=== PATIENT | female | born 1950 | race Caucasian/White ===

== ENCOUNTER 2023-08-04 06:46 | Day surgery (SDC) | payer MEDICARE, SELFPAY ==
--- NOTE | 2023-08-04 15:57 | WATCHMAN ---
Documented by User: SAMANTA Saez 09/19/23 09:03
Watchman
Wathcman Procedure
Referred by:: Monica
Date of Referral:: 08/04/23
[id number] Score
Age in Years (65=0, 65-74=1, >/=75=2): 65-74
Sex (Female=+1): Female
Congestive Heart Failure History (Yes=+1): Yes
Hypertension History (Yes=+1): Yes
Stroke/TIA/Thromboembolism History (Yes=+2): No
Vascular Disease History (Yes=+1): No
Diabetes Mellitus (Yes=+1): No
Score: 4
Anticoagulation Recommendations: Recommend anticoagulation (as validated in nonvalvular fib)
HASBLED Score
Hypertenstion (uncontrolled >160mmHG systolic): No
Renal disease (dialysis, transplant, Cr >2.26mg/dL or >200umol/L): No
Liver disease (cirrhosis or bilirubin >2x normal w/ AST/ALT/AP >3x normal: No
Stroke history: No
Prior major bleeding or predisposition to bleeding: No
Labile INR(unsable/high INRs,time in therapeutic range <60%): No
Age >65: Yes
Medication usage predisposing to bleeding(ASA, NSAIDS): No
Alcohol use (>/= 8 drinks/week): No
Score: 1
Risk: Anticoagulation should be considered: Patient has a relatively low risk for major bleeding (1/100 patient-years)
Transesophageal Echocardiogram
0 degrees:: 0.98cm
45 degrees:: 1.03cm
90 degrees:: 0.92cm
135 degrees:: 0.94cm
Electrocardiogram
Interpretation: abnormal
Heart Rate: 63
Rhythm: sinus
Interval: first degree heart block
Physician Visits
Pelt Dropper:: Monica
Date of Visit:: 07/14/23
Primary Boatswain'S Mate:: Denzel
Date of Visit:: 08/04/22
PCP:: Pro
Oral Anticoagulation
Post procedure anticoagulation plan:: Will continue Eliquis 5mg BID + ASA 81mg for for 6 weeks and if KATHERINE at that time shows no leak may transition to ASA/Plavix for a total of 6 months then ASA only per Dr. Anderson.
Plan
Plan:: 07/14/2023: Office consult with Dr. Anderson for watchman evaluation.
08/04/2023: KATHERINE performed by Dr. Mahoney to assess left atrial appendage.
08/08/2023: Reviewed patient with the heart team in the SDM meeting. Reviewed KATHERINE and the team agrees an attempt with a 20 mm device. Will confirm with intraop imaging. Will call to schedule.
08/08/2023: Called patient and updated on heart team discussion. Patient would like to proceed with watchman procedure. Allowed for and answered questions. Offered dates in August for procedure but patient unable to do. Scheduled for 09/19/2023. She
is aware she will have to come in for pre-admission testing. Verified she can tolerate aspirin and she does not have an allergy.
09/19/2023: Patient reviewed by the Heart Team at pre-procedure meeting. Will confirm sizing with KATHERINE prior to placement but anticipating a 20mm device. Will continue Eliquis 5mg BID + ASA 81mg for for 6 weeks and if KATHERINE at that time shows no leak
may transition to ASA/Plavix for a total of 6 months then ASA only per Dr. Anderson.

Documented by User: SAMANTA Dash 08/08/23 07:25
Watchman
[id number] Score
Score: 4
Anticoagulation Recommendations: Recommend anticoagulation (as validated in nonvalvular fib)
HASBLED Score
Score: 1
Risk: Anticoagulation should be considered: Patient has a relatively low risk for major bleeding (1/100 patient-years)
Plan
Plan:: 07/14/2023: Office consult with Dr. Anderson for watchman evaluation.
08/04/2023: KATHERINE performed by Dr. Mahoney to assess left atrial appendage.
08/08/2023: Reviewed patient with the heart team in the SDM meeting. Reviewed KATHERINE and the team agrees an attempt with a 20 mm device. Will confirm with intraop imaging. Will call to schedule.
== END 2023-08-04 08:54 | disposition home or self-care (01) ==
LOC: CATH 06:46
PROVIDERS: ATTENDING PHYSICIAN Internal Medicine Cardiovascular Disease; FAMILY PHYSICIAN Family Medicine
DX: I08.3 Combined rheumatic disorders of mitral, aortic and tricuspid valves (principal); I48.0 Paroxysmal atrial fibrillation; I13.0 Hypertensive heart and chronic kidney disease with heart failure and stage 1 through stage 4 chronic kidney disease, or unspecified chronic kidney disease; I50.32 Chronic diastolic (congestive) heart failure; N18.32 Chronic kidney disease, stage 3b; I25.10 Atherosclerotic heart disease of native coronary artery without angina pectoris; K21.9 Gastro-esophageal reflux disease without esophagitis; G47.33 Obstructive sleep apnea (adult) (pediatric); E66.9 Obesity, unspecified; Z68.41 Body mass index [BMI] 40.0-44.9, adult; Z87.891 Personal history of nicotine dependence; Z85.3 Personal history of malignant neoplasm of breast; Z79.01 Long term (current) use of anticoagulants
CPT/HCPCS: 93312; 93320; 93325

== ENCOUNTER 2023-09-19 05:54 | Inpatient (IN) | payer MEDICARE, SELFPAY ==
[2023-09-15 09:19] VITALS: BMI 44.3
[2023-09-19] VITALS (13 sets, daily range): BP systolic 83–119; BP diastolic 38–70
[2023-09-19] MEDS: NSS 500 IV (06:45)
--- NOTE | 2023-09-19 07:16 | PTCARENOTE ---
PT's SBP initially low 100's now 80's and 90's. NSS bolus of 250 given at this time per Dr Anderson .Will cont to assess.
[2023-09-19] MEDS: NSS 250 IV (07:19)
[2023-09-19 08:45] LABS: ACT-LR - POC 236 Seconds (116-155)
--- NOTE | 2023-09-19 09:22 | WATCHMAN.MD ---
Watchman Implant
-
ELECTROPHYSIOLOGY/INTERVENTIONAL PROCEDURE REPORT
Date of Procedure: September 19, 2023
Referring: Deana Mahoney
Assisting Physician: Андрей Cordova
PROCEDURES:
1. Left atrial appendage occlusion device using 24 mm WATCHMAN FLX device
2. Intracardiac echocardiography
3. Ultrasound-guided right common femoral venous access
INDICATION: Paroxysmal atrial fibrillation with high CHADS2 Vascor warranting full anticoagulation in the setting of high has bled score and frequent falls.
ACCESS: Right common femoral vein, 16Fr sheath and 9Fr. sheaths, under US guidance using micropunture kit.
HEMODYNAMICS : (mmHg)
RA Pressure : 14
LA Pressure: 19
PROCEDURE REPORT:
After informed consent and patient safety 'Timeout' the patient was intubated and sedated by the anesthesiology service. Under ultrasound guidance, the right femoral vein was accessed by Dr. Андрей Cordova twice for transseptal puncture and
intracardiac ultrasound, respectively. Concomitant transesophageal echocardiogram was performed by Dr. Jarek Partida
Baseline intracardiac ultrasound demonstrated no pericardial effusion and baseline KATHERINE images revealed a trace pericardial effusion.
After ruling out a left atrial appendage thrombus, the patient was heparinized for an ACT between 350-400 seconds and under KATHERINE and intracardiac ultrasound guidance transseptal puncture was performed by Dr. Aretha Anderson using an SL-1 catheter and
71cm BRK trans-septal needle in a mid position on the inferior-superior axis and a mid position on the anterior-posterior axis. Right atrial pressure was 14 millimeters mercury and left atrial pressure was 19 millimeters mercury.
Once transseptal puncture was performed, a Bowlus 0.035 wire was parked in the body of left atrium, the SL 1 sheath was exchanged for a watchman access double curve sheath. A 5 Malagasy pigtail catheter was placed into the left atrial appendage and
an appendage gram was performed using intravenous contrast dye demonstrating a chicken wing type anatomy that was suitable likely for a 24 mm WATCHMAN FLX device.
After appropriately prepping the device, Dr. Aretha Anderson successfully deployed a 24 mm WATCHMAN FLX device. Device showed excellent positioning with no leaks post device deployment. 21 to 31 % compression was noted in the device after deployment.
A 'tug-test' was performed demonstrating stability of the device. Given PASS criteria were met, the device was then released successfully by Dr. Aretha Anderson.
Post procedure, KATHERINE imaging demonstrated no new or worse pericardial effusion. Sheaths and catheters were removed from the left atrium and heparin was reversed using protamine. Catheters removed from the femoral veins with [id number] suture
applied. The patient tolerated the procedure well.
RADIATION SUMMARY: Fluoro Time (min): 15.5, Dose (mGy): 314.6, DAP (Gy.cm2) : 36.8
Closure Device: Figure of 8 suture
CONCLUSIONS
1. Successful deployment of 24 mm WATCHMAN FLX device under KATHERINE and ICE guidance.
RECOMMENDATIONS
1. Plan for Eliquis 5 mg twice daily along with daily baby aspirin 81 mg for the next 6 weeks.
2. 45-day KATHERINE post procedure to assess stability of device and rule out any alisa-device leaks. If no significant leaks with a stable device, plan to discontinue Eliquis at that point in initiate Plavix after a Plavix load with plan to do dual
antiplatelet therapy with daily baby aspirin and 75 mg of Plavix for the next 6 months.
3. Figure of 8 suture removal prior to discharge.
Copy to: Deana Mahoney
Aretha Anderson MD, [facility], [facility]
--- NOTE | 2023-09-19 09:29 | ITS.CL.PN ---
Addendum entered and electronically signed by Андрей Cordova MD 09/19/23 11:44:
The anticoagulation recommendations in the below report are in error. The proper and decided course given her history of back injections will be Eliquis plus aspirin for 6 weeks until follow-up KATHERINE and then she will be on DAPT therapy after 6 weeks.
Original Note:
Card Clothier - Procedure Note
Procedure
Procedure Note:
Watchman implantation report
Date: September 19, [address] Deana Mahoney
History: Elevated stroke and bleeding risk and after multidisciplinary review proceeded towards watchman implantation
ball machine operator: Dr. Aretha Anderson
yarn bleaching machine operator: Dr. Андрей Cordova
Procedure report:
After informed consent and patient safety timeout the patient was sedated and intubated by the anesthesiology service. Intraoperative KATHERINE was performed. There was no left atrial appendage thrombus pre and post procedure nor pericardial effusion.
Post procedure. Under ultrasound guidance a 8 Sinhala and 9 Sinhala sheaths were placed in the right femoral vein and intracardiac ultrasound was brought up to the right atrium and right ventricle demonstrating an intact fossa and only trace
pericardial effusion posterior to the left atrial appendage which was stable pre and post procedure. Transseptal puncture was then performed with an SL 1 sheath and the watchman sheath was exchanged over a ProTrac wire. Pigtail was placed in left
atrial appendage for appendage gram and a total of 50 to 55 cc of dye was given during the procedure. The pigtail was removed and a 24 mm Watchman device was delivered with 22 to 30% compression and no leak. The patient met pass criteria and the
watchman delivery sheath was from the Watchman device. She is in catheters which withdrawn from the left atrium into the IVC. A CT of greater than 250 seconds was utilized with heparin boluses and at the end of the procedure 35 mg of
protamine and a [id number] stitch was delivered to the right femoral vein access site. The patient tolerated the procedure well.
Recommendations:
The patient will be maintained on half dose Eliquis plus aspirin for 3 months until the 3-month KATHERINE and reassessment of the device and seating.
--- NOTE | 2023-09-19 13:05 | W.PN.UPDATE ---
Update Note
Progress Note Update
73 yo WF s/p 24mm JORDI Watchman device implant (same day) She feels good, no cp, sob, jordana diet, voiding, R fem site c/d/i no HT. EKG SR 1 deg AVB. She will continue OAC Eliquis 5mg bid and add ASA 81mg daily for 3 months. She will have f/u KATHERINE in 3
months. Activity restrictions reviewed. She will f/u in 4 weeks at [facility]. She is for d/c home after 2pm.
Recommendations:
The patient will be maintained on half dose Eliquis plus aspirin for 3 months until the 3-month KATHERINE and reassessment of the device and seating.
--- NOTE | 2023-09-19 14:11 | CM ---
Chart reviewed. Patient lives with roomate in a apartment, 1st floor. Patient currently with no discharge needs. Plan is for the patient to return home.
== END 2023-09-19 14:00 | disposition home or self-care (01) | DRG 274 ==
LOC: CATH-IN 05:54
PROVIDERS: ADMITTING PHYSICIAN Internal Medicine Interventional Cardiology; FAMILY PHYSICIAN Family Medicine
PROC: 02L73DK Occlusion of Left Atrial Appendage with Intraluminal Device, Percutaneous Approach (ICD-10-PCS; 2023-09-19)
PROC: B24BZZ4 Ultrasonography of Heart with Aorta, Transesophageal (ICD-10-PCS; 2023-09-19)
DX: I48.21 Permanent atrial fibrillation (principal); Z00.6 Encounter for examination for normal comparison and control in clinical research program; I13.0 Hypertensive heart and chronic kidney disease with heart failure and stage 1 through stage 4 chronic kidney disease, or unspecified chronic kidney disease; I50.32 Chronic diastolic (congestive) heart failure; Z68.41 Body mass index [BMI] 40.0-44.9, adult; D50.9 Iron deficiency anemia, unspecified; D63.1 Anemia in chronic kidney disease; R26.2 Difficulty in walking, not elsewhere classified; N18.32 Chronic kidney disease, stage 3b; I25.10 Atherosclerotic heart disease of native coronary artery without angina pectoris; I07.1 Rheumatic tricuspid insufficiency; I87.2 Venous insufficiency (chronic) (peripheral); J44.89 Other specified chronic obstructive pulmonary disease; J45.40 Moderate persistent asthma, uncomplicated; G47.33 Obstructive sleep apnea (adult) (pediatric); K21.9 Gastro-esophageal reflux disease without esophagitis; K44.9 Diaphragmatic hernia without obstruction or gangrene; K58.0 Irritable bowel syndrome with diarrhea; K76.0 Fatty (change of) liver, not elsewhere classified; G25.81 Restless legs syndrome; E89.0 Postprocedural hypothyroidism; E66.01 Morbid (severe) obesity due to excess calories; M10.9 Gout, unspecified; E83.52 Hypercalcemia; Z79.01 Long term (current) use of anticoagulants; Z79.899 Other long term (current) drug therapy; Z85.3 Personal history of malignant neoplasm of breast; Z87.891 Personal history of nicotine dependence; Z91.81 History of falling; Z92.3 Personal history of irradiation
CPT/HCPCS: 33340; 76937; 85347; 86900; 86901; 93005; 93355; 93662; C1759; C1892; C1893; C1894; Q9967

== ENCOUNTER → 2023-11-03 07:01 | Day surgery (SDC) | payer MEDICARE, SELFPAY ==
[2023-11-03 07:55] VITALS: BMI 46.8
== END ==
LOC: CATH 07:01
PROVIDERS: ATTENDING PHYSICIAN Internal Medicine Cardiovascular Disease; FAMILY PHYSICIAN Family Medicine; OTHER PHYSICIAN Internal Medicine Cardiovascular Disease
DX: I08.1 Rheumatic disorders of both mitral and tricuspid valves (principal); I48.21 Permanent atrial fibrillation; I25.10 Atherosclerotic heart disease of native coronary artery without angina pectoris; I44.0 Atrioventricular block, first degree; I13.0 Hypertensive heart and chronic kidney disease with heart failure and stage 1 through stage 4 chronic kidney disease, or unspecified chronic kidney disease; I50.32 Chronic diastolic (congestive) heart failure; N18.4 Chronic kidney disease, stage 4 (severe); J44.9 Chronic obstructive pulmonary disease, unspecified; K21.9 Gastro-esophageal reflux disease without esophagitis; E66.9 Obesity, unspecified; Z68.41 Body mass index [BMI] 40.0-44.9, adult; Z95.818 Presence of other cardiac implants and grafts; Z85.3 Personal history of malignant neoplasm of breast; Z87.891 Personal history of nicotine dependence; Z79.82 Long term (current) use of aspirin; Z79.01 Long term (current) use of anticoagulants
CPT/HCPCS: 93312; 93320; 93325

== ENCOUNTER → 2023-11-07 08:09 | Outpatient (REF) | payer MEDICARE, SELFPAY | LOC: WDC 08:09 | PROVIDERS: ATTENDING PHYSICIAN Registered Nurse; FAMILY PHYSICIAN Family Medicine | DX: N64.4 Mastodynia (principal) | CPT/HCPCS: 76642; 77061; 77065 ==

== ENCOUNTER → 2023-11-22 14:35 | Outpatient (REF) | payer MEDICARE, SELFPAY | LOC: CLAB 14:35 | PROVIDERS: ATTENDING PHYSICIAN Surgery | DX: D05.91 Unspecified type of carcinoma in situ of right breast (principal); N64.9 Disorder of breast, unspecified | CPT/HCPCS: 88305 ==

== ENCOUNTER 2023-12-18 07:03 | Emergency (ER) | payer MEDICARE, SELFPAY ==
[2023-12-18 07:16] VITALS: BP 132/82; BMI 45.6
--- NOTE | 2023-12-18 07:47 | ED.GENMED ---
History of Present Illness
General
Chief Complaint: Fall
Source: patient
Exam Limitations: none
Time Seen by Provider: 12/18/23 07:17
Nursing documentation reviewed up to this point in time: agreed with
Travel History
Have you had any contact with someone who has COVID-19?: No
Do you have any symptoms of coronavirus? Fever > 100 degrees, chills, cough, shortness of breath, sore throat, loss of taste or smell, muscle aches, or headache?: No
History of Present Illness
History of Present Illness:
73-year-old female presents to the ER for evaluation. Patient is on Plavix for history A-fib history congestive heart failure reflux chronic kidney failure stage III presents to the ER for evaluation after falls. Patient reports that she fell
twice last night around 9:00. She fell once in the bathroom and reports her legs simply gave out she crawled to a bench in her bedroom tried to get up and stood up and fell again. She reports has a poor balance. She denies any dizziness. She
does not believe she hit her head. She has chronic back pain but now has more pain on the right side. She in addition has pain in right groin.
She was unable to get in the car and drive her self here today because of discomfort. She denies any headache nausea vomiting chest pain shortness of breath.
Nurse reports she is scattered bruising throughout.She
Past History
Past History
ED Past Medical History: Arrthythmia and Other (Chronic kidney disease)
ED Past Surgical History: Cholecystectomy, Gynecological, Orthopedic and Other
Social History
Tobacco: Non-smoker
Personal:
Review of Systems
Review of Systems
Allergies reviewed?: Yes
All Other Systems: ROS reviewed and negative except as documented in HPI and ROS
Constitutional: Reports no symptoms
Respiratory: Reports no symptoms
Cardiac: Reports no symptoms
ABD/GI: Reports no symptoms; Denies nausea or vomiting
: Reports no symptoms
Musculoskeletal: Reports back pain ( )
Skin: Reports no symptoms
Neurological: Reports no symptoms; Denies dizzy or headache
Hematologic/Lymphatic: Reports no symptoms
Psychiatric: Reports no symptoms
Phy Exam
General Physical Exam
General Presentation: no apparent distress
General age: appears stated age
General Skin: warm and dry
General Habitus: elderly
General Mental: alert
General Hydration: appears well hydrated
Pulmonary Exam
Pulmonary Exam: lungs clear
Gastrointestinal Exam
Gastrointestinal Exam: non tender and soft
Neurological Exam
Neurological Exam: alert and oriented x3
Musculoskeletal Exam
Musculoskeletal Exam: other (No obvious head injury on exam no bony cervical spine thoracic or lumbar tenderness tender to the right paralumbar muscle will range of motion to bilateral hips no bony tenderness to extremities patient was scattered
ecchymosis to forearms legs)
Skin Exam
Skin Exam: normal color and warm/dry
Psychiatric Exam
Psychiatric Exam: normal mood/affect
Course
Orders/Labs/Results
Orders:
Orders
12/18/23 07:26
EKG [Electrocardiogram (*1)] Urgent
Reason for Study: Chest Pain
EKG- Treatment ONCE
12/18/23 07:46
CT Head W/o Iv Contrast Urgent
Comment:
Reason For Exam: trauma
12/18/23 07:47
Straight cath- Treatment ONCE
Hip, Right 2-3 Views [CR Hip - RT w/wo Pel 2-3 Vw*] Urgent
Comment:
Reason For Exam: trauma
Include a pelvis x-ray?: Yes
Lumbar Spine Complete, 4 View [CR Lumbar Spine Comp Min 4 Vw*] Urgent
Comment:
Reason For Exam: trauma
12/18/23 08:38
IV Insert/Care/Rem.- Treatment PRN
12/18/23 09:28
Acetaminophen [Tylenol] 650 mg PO NOW STA
12/18/23 09:29
Lidocaine [Lidocaine 4% Patch] 1 patch TOPICAL NOW STA
12/18/23 09:34
Complete Blood Count/With Diff Urgent
Comprehensive Metabolic Panel Urgent
UA Reflex to Culture [Urinalysis Reflex To Culture] Urgent
Date Specimen was Collected: 12/18/23
Time Specimen was Collected: 07:54
Urine Microscopic Reflex Cult Urgent
12/18/23 11:46
Vital Signs- Treatment ONCE
Frequency: Once
Abnormal Lab Results
12/18/23
09:34
RBC 3.61 L 10^6/uL
(4.20-5.40)
Hgb 10.4 L g/dL
(12.0-16.0)
Hct 32.4 L %
(37.0-47.0)
MCHC 32.1 L g/dL
(33.0-37.0)
Absolute Lymphs (auto) 0.7 L 10^3/uL
(1.2-3.4)
Absolute Monos (auto) 0.7 H 10^3/uL
(0.1-0.6)
Neutrophils % 80.9 H %
(42.2-75.2)
Lymphocytes % 8.6 L %
(20.5-51.1)
Monocytes % 9.4 H %
(1.7-9.3)
Sodium 134 L mmol/L
(135-145)
Chloride 94 L mmol/L
(98-107)
BUN 33 H mg/dl
(7-17)
Creatinine 2.1 H mg/dL
(0.6-1.0)
Urine Ketones Trace A
(Negative)
Ur Occult Blood Reflex Trace A
(Negative)
12/18/23 09:34
12/18/23 09:34
Vital Signs
Initial and Last Documented VS:
Initial Vital Signs
Temp Pulse Resp BP Pulse Ox
97.9 F 69 19 132/82 98
12/18/23 07:16 12/18/23 07:16 12/18/23 07:16 12/18/23 07:16 12/18/23 07:16
Last Documented Vital Signs
Temp Pulse Resp BP Pulse Ox
97.9 F 69 19 132/82 98
12/18/23 07:16 12/18/23 07:16 12/18/23 07:16 12/18/23 07:16 12/18/23 07:16
MDM/Problems Addressed
Differential Diagnosis Includes:
not limited to: Head injury, fracture contusion
MDM/Problems Addressed:
Patient is a 73-year-old female who reports she had 2 mechanical falls last night she arrives with scattered bruising. She is on Eliquis and does report she has some balance issues. She has chronic kidney disease creatinine at baseline 2.1.
Patient reports she did not hit her head however with multiple bruises and Plavix/asa CAT scan head done and negative. Hemoglobin today is 10.4 slightly lower from 11.7 on September 14.
No acute new findings on x-ray. Patient does want to go home. She did ambulate with a cane. Will get her a walker as this will likely benefit her more. She is on Tylenol with codeine for chronic back pain (but reports that she gets this
[id number] from Arianna as her boyfriend is Blair). She also does follow with [facility] however was not recently able to get an epidural because cardiology would not stop her Plavix. She is on Plavix for A-fib with watchman's procedure. She
does feel the pain is exacerbated from falls last night. Case discussed with ED physician will give only short course of Vicodin however I discussed that she must follow-up with family doctor as well as [facility]ie for evaluation of pain and follow-up.
Chronic conditions affecting care:
On Plavix for A-fib Watchman procedure history of CHF history of chronic kidney failure stage III
*Radiology
Radiology exam reviewed: radiology read reviewed
*Pulse Oximetry
Patient hypoxic: no
*EKG
Interpreted by ED Provider?: Yes
Comparison EKG: no changes
Heart Rate: 71
Rate: normal
Rhythm: sinus
Ischemia: no ischemia
*Critical Care Note
Total Time (30-74mins, 75-104mins- exclusive of procedures): Not Applicable
ED Attending Note
-
Portions of this chart may have been created with voice recognition software.� Occasional wrong word or��sound alike� substitutions may have occurred due to the inherent limitations of voice recognition software.
Discharge Plan
Departure
Patient Disposition: Home (Routine Discharge)
Date of Disposition: 12/18/23
Time of Disposition: 11:46
Patient with high blood pressure during this ER visit?: Yes
Condition: Fair
Covid-19: Not Applicable
Discharge Problem:
Back pain, Fall
Instructions: Preventing falls in adults, Back Pain, BLOOD PRESSURE
Prescriptions:
New
hydrocodone-acetaminophen 5-325 mg tablet
1 tab PO Q8H PRN (Reason: Pain) Qty: 5 0RF
No Action
levothyroxine 175 MCG tablet
175 mcg PO MOTUWETHFRSA
torsemide 20 MG tablet
20 mg PO DAILY
Cranberry Concentrate 1 EACH capsule
1 - 2 ea PO HS
spironolactone 25 MG tablet
25 mg PO DAILY
omeprazole 20 MG capsule,delayed release(DR/EC)
20 mg PO QPM
montelukast 10 MG tablet
10 mg PO QPM
cholecalciferol (vitamin D3) [Vitamin D3] 1,000 UNIT capsule
1,000 unit PO DAILY
albuterol sulfate 1 PUFF HFA aerosol inhaler
1 puff inhalation R Q4HPRN PRN (Reason: asthma)
Incruse Ellipta 62.5 MCG blister with device
62.5 mcg IH Daily
loperamide 2 MG capsule
2 mg PO Q4HPRN PRN (Reason: diarrhea)
allopurinol 100 mg Tablet
200 mg PO DAILY
ropinirole 0.25 mg Tablet
0.25 mg PO HS
metoprolol succinate 25 mg Tablet Extended Release 24 Hr
25 mg PO QPM
rosuvastatin [Crestor] 20 mg Tablet
20 mg PO DAILY
Prolia 60 mg/mL Syringe
60 mg SC [id number]
Eliquis 5 mg Tablet
5 mg PO BID
tramadol 50 mg Tablet
50 - 100 mg PO BIDPRN PRN (Reason: pain)
ammonium lactate 12 % Cream
1 applic TOPICAL DAILY
Rx Instructions:
legs with stasis dermatitis
letrozole 2.5 mg Tablet
2.5 mg PO DAILY
clobetasol 0.05 % Cream
1 applic TOPICAL DAILY PRN (Reason: stasis dermatitis )
acetaminophen 650 mg Tablet Extended Release
1,300 mg PO Q8HPRN PRN (Reason: pain)
propafenone 150 mg Tablet
150 mg PO TID
ferrous sulfate 325 mg (65 mg iron) Tablet
325 mg PO DAILY
biotin
1 tab PO DAILY
aspirin [aspirin] 81 mg tablet,delayed release (DR/EC)
81 mg PO DAILY Qty: 1 0RF
fluticasone furoate-vilanterol [Breo Ellipta] 100-25 mcg/dose Blister With Device
1 inh INHALATION DAILY
Referrals:
Benjamín Mast Jr., DO [Family Provider] -
Activity Restrictions/Additional Instructions:
As discussed stop taking your Tylenol with codeine. a small prescription for Vicodin was sent to pharmacy. This is a narcotic. No driving or drinking alcohol taking medication. His medication will cause constipation you may take stool softeners
with this. Follow-up closely with your orthopedic [facility] specialist as well as your family doctor for further reevaluation. Please use cane for ambulation.
Return if any worsening of symptoms.
Discharge Date and Time
Print Language: UKRAINIAN
[2023-12-18] MEDS: LIDOCAINE 4% PATCH 1 PATCH TOPICAL (09:45)
[2023-12-18 09:47] LABS: Urine Albumin Negative (Neg - Trace); Urine Bilirubin Negative (Negative); Urine Character Clear (Clear); Urine Color Yellow; Urine Glucose Negative (Negative); Urine Ketone Trace (Negative); Urine Leukocyte Negative (Negative); Urine Nitrite Negative (Negative); Urine Occult Blood Trace (Negative); Urine Specific Gravity 1.015 (<1.030); Urine Urobilinogen Negative (Neg - 1+)
[2023-12-18 09:49] LABS: % Basophils 0.3 % (0-2); % Eosinophils 0.3 % (0-6); % Immature Granulocytes 0.5 % (0-0.5); % Lymphocytes 8.6 % (20.5-51.1); % Monocytes 9.4 % (1.7-9.3); % Neutrophils 80.9 % (42.2-75.2); Absolute Lymphocytes 0.7 10^3/uL (1.2-3.4); Absolute Monocytes 0.7 10^3/uL (0.1-0.6); Absolute Neutrophils 6.3 10^3/uL (1.4-6.5); Hematocrit 32.4 % (37.0-47.0); Hemoglobin 10.4 g/dL (12.0-16.0); Mean Corp Hgb Conc. 32.1 g/dL (33.0-37.0); Mean Corpuscular Hgb 28.8 pg (27.0-31.0); Mean Corpuscular Volume 89.8 fL (81.0-99.0); Mean Platelet Volume 9.6 fL (7.4-10.4); Nucleated Red Blood Cells % 0 %; Platelet Count 218 10^3/uL (130-400); Red Blood Cell Count 3.61 10^6/uL (4.20-5.40); Red Cell Dist. Width 14.5 % (11.5-14.5); White Blood Cell Count 7.8 10^3/uL (4.8-10.8)
[2023-12-18 10:00] VITALS: BP 129/102
[2023-12-18 10:02] LABS: ALT (SGPT) 20 U/L (0-35); AST (SGOT) 36 U/L (14-36); Albumin 4.1 g/dl (3.5-5.0); Alkaline Phosphatase 81 U/L (38-126); Blood Urea Nitrogen 33 mg/dl (7-17); Calcium 10.2 mg/dl (8.4-10.2); Carbon Dioxide 30 mmol/L (22-30); Chloride 94 mmol/L (98-107); Estimated Creatinine Clearance 27 ml/min; Glucose 90 mg/dl (70-99); Potassium 4.1 mmol/L (3.5-5.1); Sodium 134 mmol/L (135-145); Total Bilirubin 1.2 mg/dl (0.2-1.3); Total Protein 6.5 g/dl (6.3-8.2); eGFR 24.42
[2023-12-18 10:09] LABS: Urine Amorphous Seen; Urine Red Blood Cell 0-2 /HPF (0-2); Urine Squamous Cell 0-2 /LPF (Few); Urine White Cell 0-2 /HPF (0-5)
[2023-12-18 12:35] VITALS: BP 156/89
== END 2023-12-18 12:57 | disposition home or self-care (01) ==
LOC: EMR 07:03
PROVIDERS: Nurse Practitioner; EMERGENCY PHYSICIAN Emergency Medicine; FAMILY PHYSICIAN Family Medicine
DX: M54.9 Dorsalgia, unspecified (principal); W19.XXXA Unspecified fall, initial encounter; I48.91 Unspecified atrial fibrillation; Z79.02 Long term (current) use of antithrombotics/antiplatelets; N18.30 Chronic kidney disease, stage 3 unspecified; Z79.01 Long term (current) use of anticoagulants; R03.0 Elevated blood-pressure reading, without diagnosis of hypertension
CPT/HCPCS: 99285; 70450; 72110; 73502; 80053; 81003; 81015; 85025; 93005

== ENCOUNTER → 2024-01-30 18:28 | Outpatient (REF) | payer MEDICARE, SELFPAY | LOC: PAVMRI 18:28 | PROVIDERS: ATTENDING PHYSICIAN Physician Assistant; FAMILY PHYSICIAN Family Medicine | DX: M54.16 Radiculopathy, lumbar region (principal); Z91.81 History of falling | CPT/HCPCS: 72148 ==

== ENCOUNTER → 2024-05-23 09:28 | Outpatient (REF) | payer MEDICARE, SELFPAY | LOC: RAD 09:28 | PROVIDERS: ATTENDING PHYSICIAN Nurse Practitioner Family; FAMILY PHYSICIAN Family Medicine; OTHER PHYSICIAN Internal Medicine Hematology & Oncology | DX: M81.8 Other osteoporosis without current pathological fracture (principal); D50.9 Iron deficiency anemia, unspecified; C50.411 Malignant neoplasm of upper-outer quadrant of right female breast | CPT/HCPCS: 77080 ==

== ENCOUNTER 2024-06-14 22:16 | Emergency (ER) | payer MEDICARE, SELFPAY ==
[2024-06-14 22:19] VITALS: BP 120/70
--- NOTE | 2024-06-14 23:26 | ED.SKININJ ---
HPI-Injury
<Viky Bishop NP - Last Filed: 06/14/24 23:41>
General
Chief Complaint: Skin Problem
Source: patient
Exam Limitations: none
Time Seen by Provider: 06/14/24 22:56
Nursing documentation reviewed up to this point in time: agreed with
History of Present Illness-Injury
Is this injury a work related problem?: No
Is pt an associate of [facility]?: No
Initial Injury comments:
Patient states she was walking to her couch and fell. States she has chronic low back pain and feels this is what made her fall. She denies hitting her head. Denies and SOB, CP/pressure. NO headache dizziness or blurred vision. Denies
fever/chills, recent illness. Brought to ED by neighbor for eval. SHe reports having phone on her when she fell. Reports 2 large skin tears to her left forearm. Denies any pain to arm. Incident occurred just DISMANTLER
Past History
<Viky Bishop [employer] - Last Filed: 06/14/24 23:41>
Past History
ED Past Medical History: Arrthythmia and Other (Chronic kidney disease)
ED Past Surgical History: Cholecystectomy, Gynecological, Orthopedic and Other
Social History
Tobacco: Non-smoker
Personal:
Review of Systems
<Viky Bishop [employer] - Last Filed: 06/14/24 23:41>
Review of Systems
Allergies reviewed?: Yes
All Other Systems: ROS reviewed and negative except as documented in HPI and ROS
Constitutional: Reports no symptoms
EENT: Reports no symptoms
Respiratory: Reports no symptoms
Cardiac: Reports no symptoms
ABD/GI: Reports no symptoms
: Reports no symptoms
Musculoskeletal: Reports other (Full rom to bilateral upper and lower extremities. Chronic LBP, unchanged)
Skin: Reports other (skin tear x 2 to left dorsal forearm)
Neurological: Reports no symptoms
Psychiatric: Reports no symptoms
Skin Exam
<Viky Bishop [employer] - Last Filed: 06/14/24 23:41>
Laceration
Skin Tear Left Forearm #1:
Length in cm: 10
Orientation: C shaped
Type of Laceration: simple
Any active bleeding?: no active bleeding
Distal skin color and temperature: normal-warm & good color
Normal distal neurovascular exam: Yes
Range of motion: full
Skin Tear Left Forearm #2:
Length in cm: 12
Orientation: C shaped
Type of Laceration: simple
Any active bleeding?: no active bleeding
Distal skin color and temperature: normal-warm & good color
Normal distal neurovascular exam: Yes
Range of motion: full
Phy Exam
<Viky Bishop, [employer] - Last Filed: 06/14/24 23:41>
General Physical Exam
General Presentation: well appearing and no apparent distress
General age: appears stated age
General Skin: warm and dry
General Habitus: normal
General Mental: alert
Eye Exam
Eye Exam: PERRL, EOMI, conjunctiva normal and globe normal
Cardiovascular Exam
Cardiovascular Exam: regular rate/rhythm and no edema
Pulmonary Exam
Pulmonary Exam: no respiratory distress and chest non tender
Gastrointestinal Exam
Gastrointestinal Exam: non tender, soft, no organomegaly, no pulsatile mass and no cva tenderness
Neurological Exam
Neurological Exam: alert, oriented x3, CN II-XII intact, no motor deficits, no sensory deficits, speech normal and normal gait
[place] Coma Scale
Eye Opening: Spontaneous
Verbal Response: Oriented
Motor Response: Obeys Commands
GCS Total Score: 15
Musculoskeletal Exam
Musculoskeletal Exam: full ROM and neuro vasc intact
Skin Exam
Skin Exam: normal color, warm/dry and no rash
Psychiatric Exam
Psychiatric Exam: normal mood/affect
<Eden Tim MD - Last Filed: 06/14/24 23:44>
[place] Coma Scale
GCS Total Score: 15
Course
<Viky Bishop NP - Last Filed: 06/14/24 23:41>
Vital Signs
Initial and Last Documented VS:
Initial Vital Signs
Temp Pulse Resp BP Pulse Ox
98.1 F 70 20 120/70 97
06/14/24 22:19 06/14/24 22:19 06/14/24 22:19 06/14/24 22:19 06/14/24 22:19
Last Documented Vital Signs
Temp Pulse Resp BP Pulse Ox
98.1 F 70 20 120/70 97
06/14/24 22:19 06/14/24 22:19 06/14/24 22:19 06/14/24 22:19 06/14/24 22:19
<Eden Tim MD - Last Filed: 06/14/24 23:44>
Vital Signs
Initial and Last Documented VS:
Initial Vital Signs
Temp Pulse Resp BP Pulse Ox
98.1 F 70 20 120/70 97
06/14/24 22:19 06/14/24 22:19 06/14/24 22:19 06/14/24 22:19 06/14/24 22:19
Last Documented Vital Signs
Temp Pulse Resp BP Pulse Ox
98.1 F 70 20 120/70 97
06/14/24 22:19 06/14/24 22:19 06/14/24 22:19 06/14/24 22:19 06/14/24 22:19
Procedures
<Viky Bishop NP - Last Filed: 06/14/24 23:41>
Laceration Closure
Left Forearm Skin Tear #1:
Status of Wound: clean
Description of Wound Edges: sharp
Preparation: cleaned with saline
Revision/Debridement: routine- no revision
Wound exploration: explored to base- no FB
Type of Closure: Dermabond-skin glue
Left Forearm Skin Tear #2:
Status of Wound: clean
Description of Wound Edges: sharp
Preparation: cleaned with saline
Revision/Debridement: routine- no revision
Wound exploration: explored to base- no FB
Type of Closure: Dermabond-skin glue
<Viky Bishop NP - Last Filed: 06/14/24 23:41>
*Critical Care Note
Total Time (30-74mins, 75-104mins- exclusive of procedures): Not Applicable
<Viky Bishop NP - Last Filed: 06/14/24 23:41>
Update Note
Update Note:
Patient to ED after fall at home. History of chronic back pain. Walks with cane. She feels her fall was related to her pain. She denies experiencing any CP/pressure, SOB, dizziness, headache, vision changes prior to or after fall. She denies
hitting her head. HRR, RRR, Neurologic exam unremarkable. Skin tears to her right forearm were cleansed with NSS and dried. Skin repositioned and Dermabond and steristrips applied. Arm covered with 4x4's and john. She will discharged home and
will follow up with PCP on Monday. Given instructions on s/s to return to ED and she is agreeable to plan
ED Attending Note
<Viky Bishop NP - Last Filed: 06/14/24 23:41>
-
Portions of this chart may have been created with voice recognition software.� Occasional wrong word or��sound alike� substitutions may have occurred due to the inherent limitations of voice recognition software.
<Eden Tim MD - Last Filed: 06/14/24 23:44>
ED Attending Note
Patient seen and examined by attending physician: Yes
I performed the substantive portion of visit, reviewed & personally made and approve the management plan that is documented in note by myself or SHAHNAZ.: Yes
ED Attending Note:
74-year-old female who states that she accidentally fell while getting onto the couch, fell between the couch and ottoman suffering superficial skin tears to the left upper extremity. No preceding symptoms or post fall symptoms such as loss of
consciousness, headache, dizziness, chest pain, dyspnea, abdominal pain, etc. etc. Patient is awake alert lucid pleasant. She denies neck pain, chest pain, extremity pain, or other complaints. Wounds were repaired by nurse practitioner Viky.
Precautions given to patient.
Discharge Plan
Departure
Patient Disposition: Home (Routine Discharge)
Date of Disposition: 06/14/24
Time of Disposition: 23:38
Patient with high blood pressure during this ER visit?: No
Condition: Good
Covid-19: Not Applicable
Discharge Problem:
Skin tear of left forearm without complication
Instructions: Laceration Repair With Glue ED
Prescriptions:
No Action
levothyroxine 175 MCG tablet
175 mcg PO MOTUWETHFRSA
torsemide 20 MG tablet
20 mg PO DAILY
Cranberry Concentrate 1 EACH capsule
1 - 2 ea PO HS
spironolactone 25 MG tablet
25 mg PO DAILY
omeprazole 20 MG capsule,delayed release(DR/EC)
20 mg PO QPM
montelukast 10 MG tablet
10 mg PO QPM
cholecalciferol (vitamin D3) [Vitamin D3] 1,000 UNIT capsule
1,000 unit PO DAILY
albuterol sulfate 1 PUFF HFA aerosol inhaler
1 puff inhalation R Q4HPRN PRN (Reason: asthma)
Incruse Ellipta 62.5 MCG blister with device
62.5 mcg IH Daily
loperamide 2 MG capsule
2 mg PO Q4HPRN PRN (Reason: diarrhea)
allopurinol 100 mg Tablet
200 mg PO DAILY
ropinirole 0.25 mg Tablet
0.25 mg PO HS
metoprolol succinate 25 mg Tablet Extended Release 24 Hr
25 mg PO QPM
rosuvastatin [Crestor] 20 mg Tablet
20 mg PO DAILY
Prolia 60 mg/mL Syringe
60 mg SC [id number]
Eliquis 5 mg Tablet
5 mg PO BID
tramadol 50 mg Tablet
50 - 100 mg PO BIDPRN PRN (Reason: pain)
ammonium lactate 12 % Cream
1 applic TOPICAL DAILY
Rx Instructions:
legs with stasis dermatitis
letrozole 2.5 mg Tablet
2.5 mg PO DAILY
clobetasol 0.05 % Cream
1 applic TOPICAL DAILY PRN (Reason: stasis dermatitis )
acetaminophen 650 mg Tablet Extended Release
1,300 mg PO Q8HPRN PRN (Reason: pain)
propafenone 150 mg Tablet
150 mg PO TID
ferrous sulfate 325 mg (65 mg iron) Tablet
325 mg PO DAILY
biotin
1 tab PO DAILY
aspirin [aspirin] 81 mg tablet,delayed release (DR/EC)
81 mg PO DAILY Qty: 1 0RF
fluticasone furoate-vilanterol [Breo Ellipta] 100-25 mcg/dose Blister With Device
1 inh INHALATION DAILY
hydrocodone-acetaminophen 5-325 mg tablet
1 tab PO Q8H PRN (Reason: Pain) Qty: 5 0RF
Referrals:
Benjamín Mast Jr., DO [Family Provider] - Follow up in 2-3 days
Interventions
Interventions:
*Risk Screen - Suicide Last Done: 06/14/24 22:23
*ED COVID-19 Vaccine History Last Done: 06/14/24 22:22
ED-Skin Assessment Last Done: 06/14/24 23:07
Discharge Date and Time
Print Language: ESTONIAN
[2024-06-14 23:50] VITALS: BP 118/73
== END 2024-06-15 00:02 | disposition home or self-care (01) ==
LOC: EMR 22:16
PROVIDERS: EMERGENCY PHYSICIAN Emergency Medicine; FAMILY PHYSICIAN Family Medicine
DX: S51.812A Laceration without foreign body of left forearm, initial encounter (principal); W19.XXXA Unspecified fall, initial encounter; G89.29 Other chronic pain; M54.50 Low back pain, unspecified
CPT/HCPCS: 12006; 99282

== ENCOUNTER → 2024-07-04 12:02 | Outpatient (REF) | payer MEDICARE, SELFPAY | LOC: WOUND 12:02 | PROVIDERS: ATTENDING PHYSICIAN Surgery; FAMILY PHYSICIAN Family Medicine | DX: S51.802A Unspecified open wound of left forearm, initial encounter (principal); N18.32 Chronic kidney disease, stage 3b; I48.21 Permanent atrial fibrillation; W19.XXXA Unspecified fall, initial encounter; Y92.008 Other place in unspecified non-institutional (private) residence as the place of occurrence of the external cause; Z79.01 Long term (current) use of anticoagulants | CPT/HCPCS: 99213 ==

== ENCOUNTER → 2024-07-08 13:38 | Outpatient (REF) | payer MEDICARE, SELFPAY | LOC: WDC 13:38 | PROVIDERS: ATTENDING PHYSICIAN Family Medicine | DX: Z12.31 Encounter for screening mammogram for malignant neoplasm of breast (principal) | CPT/HCPCS: 77063; 77067 ==

== ENCOUNTER → 2024-07-11 13:45 | Outpatient (REF) | payer MEDICARE, SELFPAY | LOC: WOUND 13:45 | PROVIDERS: ATTENDING PHYSICIAN Surgery; FAMILY PHYSICIAN Family Medicine | DX: S51.802A Unspecified open wound of left forearm, initial encounter (principal); N18.32 Chronic kidney disease, stage 3b; I48.21 Permanent atrial fibrillation; Z79.01 Long term (current) use of anticoagulants; W19.XXXA Unspecified fall, initial encounter | CPT/HCPCS: 97597 ==

== ENCOUNTER 2024-07-17 16:43 | Outpatient (RCR) | payer MEDICARE, SELFPAY | END 2024-07-17 23:59 | disposition home or self-care (01) | LOC: RPT 16:43 | PROVIDERS: ATTENDING PHYSICIAN Physician Assistant Surgical; FAMILY PHYSICIAN Family Medicine | DX: S42.272D Torus fracture of upper end of left humerus, subsequent encounter for fracture with routine healing (principal); M25.512 Pain in left shoulder; Z73.6 Limitation of activities due to disability | CPT/HCPCS: 97010; 97110; 97162 ==

== ENCOUNTER → 2024-07-18 09:27 | Outpatient (REF) | payer MEDICARE, SELFPAY | LOC: WOUND 09:27 | PROVIDERS: ATTENDING PHYSICIAN Surgery; FAMILY PHYSICIAN Family Medicine | DX: S51.802A Unspecified open wound of left forearm, initial encounter (principal); N18.32 Chronic kidney disease, stage 3b; I48.21 Permanent atrial fibrillation; Z79.01 Long term (current) use of anticoagulants; W19.XXXA Unspecified fall, initial encounter | CPT/HCPCS: 99213 ==

== ENCOUNTER → 2024-07-26 13:27 | Outpatient (REF) | payer MEDICARE, SELFPAY | LOC: WOUND 13:27 | PROVIDERS: ATTENDING PHYSICIAN Surgery; FAMILY PHYSICIAN Family Medicine | DX: S51.802A Unspecified open wound of left forearm, initial encounter (principal); N18.32 Chronic kidney disease, stage 3b; I48.21 Permanent atrial fibrillation; Z79.01 Long term (current) use of anticoagulants; X58.XXXA Exposure to other specified factors, initial encounter | CPT/HCPCS: 99212 ==

== ENCOUNTER → 2024-08-22 08:37 | Outpatient (REF) | payer MEDICARE, SELFPAY | LOC: WOUND 08:37 | PROVIDERS: ATTENDING PHYSICIAN Surgery; FAMILY PHYSICIAN Family Medicine | DX: L97.222 Non-pressure chronic ulcer of left calf with fat layer exposed (principal); I87.2 Venous insufficiency (chronic) (peripheral); N18.32 Chronic kidney disease, stage 3b; I48.21 Permanent atrial fibrillation; Z79.01 Long term (current) use of anticoagulants | CPT/HCPCS: 11042; 99214 ==

== ENCOUNTER 2024-08-30 09:49 | Outpatient (RCR) | payer MEDICARE, SELFPAY | END 2024-08-30 23:59 | disposition home or self-care (01) | LOC: RPT 09:49 | PROVIDERS: ATTENDING PHYSICIAN Physician Assistant Surgical; FAMILY PHYSICIAN Family Medicine | DX: S42.272D Torus fracture of upper end of left humerus, subsequent encounter for fracture with routine healing (principal); M25.512 Pain in left shoulder; Z73.6 Limitation of activities due to disability | CPT/HCPCS: 97110 ==

== ENCOUNTER → 2024-09-04 06:41 | Outpatient (REF) | payer MEDICARE, SELFPAY | LOC: RAD 06:41 | PROVIDERS: ATTENDING PHYSICIAN Surgery; FAMILY PHYSICIAN Family Medicine | DX: L97.222 Non-pressure chronic ulcer of left calf with fat layer exposed (principal); I87.2 Venous insufficiency (chronic) (peripheral) | CPT/HCPCS: 93971 ==

== ENCOUNTER → 2024-09-05 09:03 | Outpatient (REF) | payer MEDICARE, SELFPAY | LOC: WOUND 09:03 | PROVIDERS: ATTENDING PHYSICIAN Surgery; FAMILY PHYSICIAN Family Medicine | DX: L97.222 Non-pressure chronic ulcer of left calf with fat layer exposed (principal); I87.2 Venous insufficiency (chronic) (peripheral); Z79.01 Long term (current) use of anticoagulants; N18.32 Chronic kidney disease, stage 3b; I48.21 Permanent atrial fibrillation | CPT/HCPCS: 99213 ==

== ENCOUNTER → 2024-09-12 13:30 | Outpatient (REF) | payer MEDICARE, SELFPAY | LOC: WOUND 13:30 | PROVIDERS: ATTENDING PHYSICIAN Surgery; FAMILY PHYSICIAN Family Medicine | DX: L97.222 Non-pressure chronic ulcer of left calf with fat layer exposed (principal); I87.2 Venous insufficiency (chronic) (peripheral); Z79.01 Long term (current) use of anticoagulants; N18.32 Chronic kidney disease, stage 3b; I48.21 Permanent atrial fibrillation | CPT/HCPCS: 11042 ==

== ENCOUNTER 2024-09-25 09:56 | Outpatient (RCR) | payer MEDICARE, SELFPAY | END 2024-09-30 15:25 | disposition home or self-care (01) | LOC: RPT 09:56 | PROVIDERS: ATTENDING PHYSICIAN Physician Assistant Surgical; FAMILY PHYSICIAN Family Medicine | DX: S42.272D Torus fracture of upper end of left humerus, subsequent encounter for fracture with routine healing (principal); M25.512 Pain in left shoulder; M54.16 Radiculopathy, lumbar region; Z73.6 Limitation of activities due to disability; R26.81 Unsteadiness on feet; R26.2 Difficulty in walking, not elsewhere classified; M62.81 Muscle weakness (generalized); W19.XXXD Unspecified fall, subsequent encounter | CPT/HCPCS: 97110; 97112 ==

== ENCOUNTER → 2024-09-27 08:58 | Outpatient (REF) | payer MEDICARE, SELFPAY | LOC: WOUND 08:58 | PROVIDERS: ATTENDING PHYSICIAN Surgery; FAMILY PHYSICIAN Family Medicine | DX: L97.222 Non-pressure chronic ulcer of left calf with fat layer exposed (principal); I87.2 Venous insufficiency (chronic) (peripheral); N18.32 Chronic kidney disease, stage 3b; I48.21 Permanent atrial fibrillation; Z79.01 Long term (current) use of anticoagulants | CPT/HCPCS: 11042 ==

== ENCOUNTER → 2024-10-03 11:38 | Outpatient (REF) | payer MEDICARE, SELFPAY | LOC: WOUND 11:38 | PROVIDERS: ATTENDING PHYSICIAN Surgery; FAMILY PHYSICIAN Family Medicine | DX: L97.222 Non-pressure chronic ulcer of left calf with fat layer exposed (principal); I87.2 Venous insufficiency (chronic) (peripheral); N18.32 Chronic kidney disease, stage 3b; I48.21 Permanent atrial fibrillation | CPT/HCPCS: 11042 ==

== ENCOUNTER → 2024-10-17 09:33 | Outpatient (REF) | payer MEDICARE, SELFPAY | LOC: WOUND 09:33 | PROVIDERS: ATTENDING PHYSICIAN Surgery; FAMILY PHYSICIAN Family Medicine | DX: L97.222 Non-pressure chronic ulcer of left calf with fat layer exposed (principal); I87.2 Venous insufficiency (chronic) (peripheral); N18.32 Chronic kidney disease, stage 3b; I48.21 Permanent atrial fibrillation; Z79.01 Long term (current) use of anticoagulants | CPT/HCPCS: 99212 ==

== ENCOUNTER → 2024-11-01 12:48 | Outpatient (REF) | payer MEDICARE, SELFPAY | LOC: RCS 12:48 | PROVIDERS: ATTENDING PHYSICIAN Internal Medicine Cardiovascular Disease; FAMILY PHYSICIAN Family Medicine | DX: I10 Essential (primary) hypertension (principal); R06.02 Shortness of breath | CPT/HCPCS: 93306; Q9950 ==

== ENCOUNTER 2024-11-07 10:07 | Emergency (ER) | payer MEDICARE, SELFPAY ==
[2024-11-07 10:10] VITALS: BP 94/60
--- NOTE | 2024-11-07 11:27 | ED.GENMED ---
History of Present Illness
General
Chief Complaint: Fall
Source: patient
Exam Limitations: none
Time Seen by Provider: 11/07/24 10:50
Nursing documentation reviewed up to this point in time: agreed with
History of Present Illness
History of Present Illness:
74-year-old female with past medical history as noted presents to the ER for evaluation after trip and fall. Patient tripped on a curb and fell forward and struck her face on the ground. She did not lose consciousness. She sustained trauma to the
left upper lip and an abrasion to the nose. She says she did not have epistaxis but did have bleeding in the left upper lip. She has mild headache and achiness in the face on the left side. She denies any neck pain. Denies any chest/rib pain or
abdominal pain. She denies any back pain. She does have some pain in her right fourth finger but denies any other injuries to her extremities; she was able to bear weight after the fall and has been ambulatory (with cane, which is baseline). She
had previously been on Eliquis for A-fib but this was discontinued in April status post watchman.
Past History
Past History
ED Past Medical History: Arrthythmia and Other (Chronic kidney disease)
ED Past Surgical History: Cholecystectomy, Gynecological, Orthopedic and Other
Social History
Tobacco: Non-smoker
Personal:
Review of Systems
Review of Systems
All Other Systems: ROS reviewed and negative except as documented in HPI and ROS
EENT: Reports other (Facial pain)
Respiratory: Denies trouble breathing
Cardiac: Denies chest pain
ABD/GI: Denies abdominal pain, nausea or vomiting
: Denies flank pain
Musculoskeletal: Reports other (Hand pain); Denies neck pain or back pain
Neurological: Denies headache
Phy Exam
Physical Exam
Physical Exam:
General: Awake, alert, GCS 15; no acute distress
Head: Normocephalic, no cephalhematoma; patient has minor abrasion to the kaycee of the left nose; she has a laceration to the left upper inner lip� approximately 3 cm linear but somewhat ragged laceration of the left upper lip which does not violate
the vermilion border; she also has an inner lip laceration approximately 3 cm consistent with a through and through laceration
Eyes: Conjunctiva normal, EOMI, pupils equal round and reactive to light bilaterally
Throat: Airway intact, handling secretions, left upper inner lip laceration noted; she does have a very minor chip to the right front tooth but no exposed pulp/dentin (Nazario I)
Neck: Trachea midline, no cervical spine tenderness
Back: No signs of trauma to the back or flank and no tenderness in the thoracic or lumbar spine
Lungs: Breathing comfortably no distress
Heart: Regular rate; no chest wall tenderness
Abd: Soft, non distended, nontender
Neuro: No gross deficits, ambulatory
Extremities: Patient has bruising to the dorsum of the right hand and some tenderness over the fourth MCP joint and proximal phalanx; rest of extremities are atraumatic; she is able to make a fist with the right hand has a strong right radial pulse;
she is moving left upper extremity and both legs through comfortable range of motion no pain
Scores
Heart Failure Risk
Heart Failure Risk Score: Not Applicable
Heart Score for Chest Pain Patients
STEMI patient?: Not applicable
Withdrawal Assessment of Alcohol
Withdrawal Assessment Completed?: Not applicable
Course
Orders/Labs/Results
Orders:
Orders
11/07/24 11:09
CR Hand - Right Min 3 Views Urgent
Comment:
Reason For Exam: right 4th MCP swelling, hand pain s/p fall
11/07/24 11:10
CT Cervical Spine W/o Iv Contr Urgent
Comment:
Reason For Exam: fall with head strike, headache, dizzy
CT Facial Bones W/o Iv Contras Urgent
Comment:
Reason For Exam: fall with head strike, facial brusing
CT Head W/o Iv Contrast Urgent
Comment:
Reason For Exam: fall with head strike, headache, dizzy
11/07/24 12:07
Acetaminophen [Tylenol] 1,000 mg PO NOW STA
Tetanus/Diphth/Acelpertussis [Adacel] 0.5 ml IM .ONCE ONE
Vital Signs
Initial and Last Documented VS:
Initial Vital Signs
Temp Pulse Resp BP Pulse Ox
37.0 C 79 18 94/60 98
11/07/24 10:10 11/07/24 10:10 11/07/24 10:10 11/07/24 10:10 11/07/24 10:10
Last Documented Vital Signs
Temp Pulse Resp BP Pulse Ox
37.0 C 78 16 104/70 97
11/07/24 10:10 11/07/24 11:58 11/07/24 12:02 11/07/24 11:58 11/07/24 11:58
Procedures
Laceration Closure
Left Upper Lip:
Status of Wound: dirty
Size of Wound in cm: 3
Description of Wound Edges: ragged
Preparation: cleaned with saline
Anesthesia: 1% Lidocaine with epi
Revision/Debridement: minor revision
Wound exploration: extensive cleaning of contaminated wound
Type of Closure: layered closure
Skin Closure Material: 6-0 nylon (4) and 5-0 chromic gut (3)
Number of sutures: 7
MDM/Problems Addressed
Differential Diagnosis Includes:
Nasal fracture, maxillary fracture, intracranial hemorrhage, cervical spine injury, hand fracture, hand contusion
MDM/Problems Addressed:
74-year-old female presents for evaluation after trip and fall. Not on blood thinners. Vitals and exam as above. Check CT head and cervical spine, facial bones. Check x-ray of the hand. Treat with Tylenol. Update tetanus. Reassess after the
above.
CT of the head, facial bones, cervical spine showed no acute abnormalities. X-ray of the hand shows no acute fracture. Laceration was repaired with stitches as documented in procedure note. Stable for discharge. We spoke about return precautions
all questions were answered.
*Radiology
Radiology exam reviewed: radiology read reviewed
*Pulse Oximetry
Patient hypoxic: no
*Critical Care Note
Total Time (30-74mins, 75-104mins- exclusive of procedures): Not Applicable
Data Reviewed
Source: patient and records
ED Attending Note
-
Portions of this chart may have been created with voice recognition software.� Occasional wrong word or��sound alike� substitutions may have occurred due to the inherent limitations of voice recognition software.
Discharge Plan
Departure
Patient Disposition: Home (Routine Discharge)
Date of Disposition: 11/07/24
Time of Disposition: 13:32
Patient with high blood pressure during this ER visit?: No
Discharge Problem:
Laceration of lip, Chipped tooth
Instructions: Fractured Tooth (DC), Stitches - ED discharge instructions
Prescriptions:
No Action
levothyroxine 175 MCG tablet
175 mcg PO MOTUWETHFRSA
torsemide 20 MG tablet
20 mg PO DAILY
Cranberry Concentrate 1 EACH capsule
1 - 2 ea PO HS
spironolactone 25 MG tablet
25 mg PO DAILY
omeprazole 20 MG capsule,delayed release(DR/EC)
20 mg PO QPM
montelukast 10 MG tablet
10 mg PO QPM
cholecalciferol (vitamin D3) [Vitamin D3] 1,000 UNIT capsule
1,000 unit PO DAILY
albuterol sulfate 1 PUFF HFA aerosol inhaler
1 puff inhalation R Q4HPRN PRN (Reason: asthma)
Incruse Ellipta 62.5 MCG blister with device
62.5 mcg IH Daily
loperamide 2 MG capsule
2 mg PO Q4HPRN PRN (Reason: diarrhea)
allopurinol 100 mg Tablet
200 mg PO DAILY
ropinirole 0.25 mg Tablet
0.25 mg PO HS
metoprolol succinate 25 mg Tablet Extended Release 24 Hr
25 mg PO QPM
rosuvastatin [Crestor] 20 mg Tablet
20 mg PO DAILY
Prolia 60 mg/mL Syringe
60 mg SC [id number]
Eliquis 5 mg Tablet
5 mg PO BID
tramadol 50 mg Tablet
50 - 100 mg PO BIDPRN PRN (Reason: pain)
ammonium lactate 12 % Cream
1 applic TOPICAL DAILY
Rx Instructions:
legs with stasis dermatitis
letrozole 2.5 mg Tablet
2.5 mg PO DAILY
clobetasol 0.05 % Cream
1 applic TOPICAL DAILY PRN (Reason: stasis dermatitis )
acetaminophen 650 mg Tablet Extended Release
1,300 mg PO Q8HPRN PRN (Reason: pain)
propafenone 150 mg Tablet
150 mg PO TID
ferrous sulfate 325 mg (65 mg iron) Tablet
325 mg PO DAILY
biotin
1 tab PO DAILY
aspirin [aspirin] 81 mg tablet,delayed release (DR/EC)
81 mg PO DAILY Qty: 1 0RF
fluticasone furoate-vilanterol [Breo Ellipta] 100-25 mcg/dose Blister With Device
1 inh INHALATION DAILY
hydrocodone-acetaminophen 5-325 mg tablet
1 tab PO Q8H PRN (Reason: Pain) Qty: 5 0RF
Referrals:
Benjamín Mast Jr., DO [Family Provider] - Follow up in 5-7 days
Activity Restrictions/Additional Instructions:
You seen in the emergency room after a fall. You were found to have a laceration of your upper lip which was repaired with stitches. You should have your stitches removed in 1 week�you can either return here to the emergency room, follow-up with
your primary doctor, or go to urgent care to have your stitches removed. You should ice this area to help with the swelling over the next few days and you can take Tylenol as needed for pain. You were noted to have a chipped front tooth. You
should follow-up with your dentist for further assessment of this as soon as possible.
Thank you for visiting the Emergency Department at [facility].
1. Please schedule a follow up appointment as directed. Call first thing tomorrow morning to make an appointment.
2. If indicated, please take your medications as instructed and indicated on discharge paperwork.
3. If any of your symptoms do not improve, or persist, or become more severe within 6-12 hours, please return to the emergency department for further care.
4. Please return to the emergency department if you develop a headache, neck pain/stiffness, fever greater than 100.4F, chest pain, shortness of breath, persistent nausea, vomiting, slurred speech, difficulty walking, numbness/tingling, weakness,
signs of infection or any other symptoms that are worrisome to you.
Please call [phone] if you have any questions.
Interventions
Interventions:
*Risk Screen - Suicide Last Done: 11/07/24 10:10
*General Assessment Last Done: 11/07/24 10:10
*Neglect/Abuse Screening Last Done: 11/07/24 10:10
*ED- Fall Risk Assessment Last Done: 11/07/24 10:44
*ED COVID-19 Vaccine History Last Done: 11/07/24 10:10
ED-Musculoskeletal Assessment Last Done: 11/07/24 10:45
ED- Neurological Assessment Last Done: 11/07/24 10:45
ED-Skin Assessment Last Done: 11/07/24 10:45
Discharge Date and Time
Print Language: ROMANIAN
[2024-11-07 11:58] VITALS: BP 104/70
[2024-11-07] MEDS: TYLENOL 1000 MG PO (12:11)
[2024-11-07] MEDS: ADACEL 0.5 ML IM (12:12)
[2024-11-07 13:51] VITALS: BP 108/68
== END 2024-11-07 13:52 | disposition home or self-care (01) ==
LOC: EMR 10:07
PROVIDERS: EMERGENCY PHYSICIAN Emergency Medicine; FAMILY PHYSICIAN Family Medicine
DX: S01.511A Laceration without foreign body of lip, initial encounter (principal); S02.5XXA Fracture of tooth (traumatic), initial encounter for closed fracture; W01.0XXA Fall on same level from slipping, tripping and stumbling without subsequent striking against object, initial encounter; Z23 Encounter for immunization; N18.9 Chronic kidney disease, unspecified; Z79.01 Long term (current) use of anticoagulants; Z90.49 Acquired absence of other specified parts of digestive tract
CPT/HCPCS: 99284; 12013; 90471; 70450; 70486; 72125; 73130; 90715

== ENCOUNTER 2024-12-19 12:21 | Inpatient (IN) | payer MEDICARE, SELFPAY ==
[2024-12-19 10:01] VITALS: BP 111/65
[2024-12-19 10:21] VITALS: BMI 41.8
[2024-12-19 10:26] LABS: % Basophils 0.2 % (0-2); % Eosinophils 1.1 % (0-6); % Immature Granulocytes 0.2 % (0-0.5); % Lymphocytes 11.3 % (20.5-51.1); % Monocytes 7.8 % (1.7-9.3); % Neutrophils 79.4 % (42.2-75.2); Absolute Eosinophils 0.1 10^3/uL (0-0.7); Absolute Monocytes 0.7 10^3/uL (0.1-0.6); Absolute Neutrophils 6.8 10^3/uL (1.4-6.5); Hematocrit 37.6 % (37.0-47.0); Hemoglobin 12.7 g/dL (12.0-16.0); Mean Corp Hgb Conc. 33.8 g/dL (33.0-37.0); Mean Corpuscular Hgb 31.8 pg (27.0-31.0); Mean Corpuscular Volume 94.2 fL (81.0-99.0); Mean Platelet Volume 10.2 fL (7.4-10.4); Nucleated Red Blood Cells % 0 %; Platelet Count 250 10^3/uL (130-400); Red Blood Cell Count 3.99 10^6/uL (4.20-5.40); Red Cell Dist. Width 14.4 % (11.5-14.5); White Blood Cell Count 8.5 10^3/uL (4.8-10.8)
--- NOTE | 2024-12-19 10:55 | ED.GENMED ---
History of Present Illness
General
Chief Complaint: Abnormal Lab Value
Source: patient
Exam Limitations: none
Time Seen by Provider: 12/19/24 10:09
Nursing documentation reviewed up to this point in time: agreed with
History of Present Illness
History of Present Illness:
Note:
CHIEF COMPLAINT(S)
Concern for elevated creatinine and frequent vomiting.
HISTORY OF PRESENT ILLNESS
The patient, a 74-year-old female with a history of heart failure, presents with an elevated creatinine level of 4.2, discovered during evaluation by her primary care physician. She reports vomiting frequently in the morning but denies vomiting
today. The patient admits to reduced oral intake, both in eating and drinking. She is currently taking torsemide and spironolactone and is followed by a child psychometrist. Her regular medications include propranolol for blood pressure. The patient has a
history of smoking and currently uses marijuana at night for sleep. She lives alone but has contact with her sister. Recent labs, specifically the creatinine level, were initially performed on Monday and are available on her phone.
REVIEW OF SYSTEMS
- Gastrointestinal: Frequent morning vomiting. Reduced oral intake.
- General: Reports feeling tired but is also experiencing fear.
PHYSICAL EXAM
Nursing notes reviewed and vital signs reviewed. No edema noted.
General: no apparent distress, not acutely ill
Neck: supple. no meningeal signs. normal posterior pharynx
Heart: s1/s2 regular rate and rhythm, no murmur. equal radial
pulses.
HEENT: Pupils equal round reactive to light, EOMI
Lungs: no acute respiratory distress. clear bilaterally
Abdomen: normal bowel sounds. not tender. no CVAT
Neuro: alert and oriented. no focal neurological deficits cranial nerves II through XII intact
Skin: no rash
Psychiatric: well kept. interactive and cooperative
Extremities: no edema. no calf tenderness. negative homans. good distal pulses
SOCIAL HISTORY
- Alcohol: Previously consumed alcohol more frequently; currently minimal intake due to intolerance.
- Tobacco: History of smoking.
- Drug Use: Nightly use of marijuana for sleep.
- Living Situation: Lives alone but with sister nearby.
MEDICATIONS
- Bumetanide
- Spironolactone
- Propranolol
PLAN
The patient will be admitted to the hospital for further evaluation and management of elevated creatinine and to assess current medication regimen. Adjustments to her medications may be necessary. Monitoring of kidney function and fluid balance will
be prioritized.
DIFFERENTIAL DIAGNOSIS
The Differential Diagnosis includes, in no particular order and is not limited to:
- Acute kidney injury
- Chronic kidney disease progression
- Dehydration
- Heart failure exacerbation
- Electrolyte imbalance
- Medication effect or toxicity
- Renal artery stenosis
- Diabetic nephropathy (if diabetes is confirmed)
- Obstructive uropathy
- Hepatorenal syndrome
CARE-UPDATE
12/19/24 - 11:40
Awaiting urinalysis results. Consulting nephrology for further evaluation of acute kidney injury.
Disposition:
SUMMARY OF ENCOUNTER
The patient presented with concerns for elevated creatinine and frequent vomiting, with a history of heart failure.
DISPOSITION
The patient was admitted for further evaluation and management.
ASSESSMENT
Acute kidney injury.
PLAN
Admission to the hospital for further evaluation and management of elevated creatinine and to assess the current medication regimen.
MEDICATION RECONCILIATION
Review of current medications includes torsemide, spironolactone, and propranolol.
MEDICAL DECISION MAKING
1. Number & Complexity of Problems: Chronic conditions affecting care include heart failure and possible acute kidney injury. Differential diagnoses considered include chronic kidney disease progression, dehydration, heart failure exacerbation, and
medication effect or toxicity.
2. Data Reviewed: Recent labs reviewed showing elevated creatinine level. Consultation with nephrology advised for further evaluation.
3. Risk: Admission required due to the complexity of the case and the elevated risk associated with high creatinine levels and frequent vomiting.
PATHOLOGIES TO CONSIDER
- Acute kidney injury.
- Chronic kidney disease progression.
- Heart failure exacerbation.
- Medication effect or toxicity.
Past History
Past History
ED Past Medical History: Arrthythmia and Other (Chronic kidney disease)
ED Past Surgical History: Cholecystectomy, Gynecological, Orthopedic and Other
Social History
Tobacco: Non-smoker
Personal:
Phy Exam
Physical Exam
Physical Exam:
.
Course
Orders/Labs/Results
Orders:
Orders
12/19/24 10:12
IV Insert/Care/Rem.- Treatment PRN
Urinalysis Reflex To Culture Urgent
Date Specimen was Collected: 12/19/24
Time Specimen was Collected: 11:34
12/19/24 10:19
Complete Blood Count/With Diff Urgent
Comprehensive Metabolic Panel Urgent
Magnesium Urgent
Abnormal Lab Results
12/19/24
10:19
RBC 3.99 L 10^6/uL
(4.20-5.40)
MCH 31.8 H pg
(27.0-31.0)
Absolute Neuts (auto) 6.8 H 10^3/uL
(1.4-6.5)
Absolute Lymphs (auto) 1.0 L 10^3/uL
(1.2-3.4)
Absolute Monos (auto) 0.7 H 10^3/uL
(0.1-0.6)
Neutrophils % 79.4 H %
(42.2-75.2)
Lymphocytes % 11.3 L %
(20.5-51.1)
Sodium 132 L mmol/L
(135-145)
Potassium 3.3 L mmol/L
(3.5-5.1)
Chloride 85 L mmol/L
(98-107)
Carbon Dioxide 34 H mmol/L
(22-30)
BUN 63 H mg/dl
(7-17)
Creatinine 3.9 H mg/dL
(0.6-1.0)
Calcium 10.5 H mg/dl
(8.4-10.2)
Total Bilirubin 1.6 H mg/dl
(0.2-1.3)
12/19/24 10:19
12/19/24 10:19
Vital Signs
Initial and Last Documented VS:
Initial Vital Signs
Temp Pulse Resp BP Pulse Ox
97.7 F 88 20 111/65 95
12/19/24 10:01 12/19/24 10:01 12/19/24 10:01 12/19/24 10:01 12/19/24 10:01
Last Documented Vital Signs
Temp Pulse Resp BP Pulse Ox
97.7 F 88 20 111/65 95
12/19/24 10:01 12/19/24 10:01 12/19/24 10:01 12/19/24 10:01 12/19/24 10:56
*Pulse Oximetry
SaO2: 95
Oxygen Mode of Delivery: Room air
Patient hypoxic: no
*Critical Care Note
Total Time (30-74mins, 75-104mins- exclusive of procedures): Not Applicable
ED Attending Note
-
Portions of this chart may have been created with voice recognition software.� Occasional wrong word or��sound alike� substitutions may have occurred due to the inherent limitations of voice recognition software.
Discharge Plan
Departure
Patient Disposition: Admit
Date of Disposition: 12/19/24
Time of Disposition: 11:44
Admit to: Telemetry
Presentation/result/management discussed w/ accepting MD/DO: Hospitalist
Patient with high blood pressure during this ER visit?: No
Condition: Fair
Discharge Problem:
Acute renal failure
Prescriptions:
No Action
levothyroxine 175 MCG tablet
175 mcg PO MOTUWETHFRSA
torsemide 20 MG tablet
20 mg PO DAILY
Cranberry Concentrate 1 EACH capsule
1 - 2 ea PO HS
spironolactone 25 MG tablet
25 mg PO DAILY
omeprazole 20 MG capsule,delayed release(DR/EC)
20 mg PO QPM
montelukast 10 MG tablet
10 mg PO QPM
cholecalciferol (vitamin D3) [Vitamin D3] 1,000 UNIT capsule
1,000 unit PO DAILY
albuterol sulfate 1 PUFF HFA aerosol inhaler
1 puff inhalation R Q4HPRN PRN (Reason: asthma)
Incruse Ellipta 62.5 MCG blister with device
62.5 mcg IH Daily
loperamide 2 MG capsule
2 mg PO Q4HPRN PRN (Reason: diarrhea)
allopurinol 100 mg Tablet
200 mg PO DAILY
ropinirole 0.25 mg Tablet
0.25 mg PO HS
metoprolol succinate 25 mg Tablet Extended Release 24 Hr
25 mg PO QPM
rosuvastatin [Crestor] 20 mg Tablet
20 mg PO DAILY
Prolia 60 mg/mL Syringe
60 mg SC [id number]
Eliquis 5 mg Tablet
5 mg PO BID
tramadol 50 mg Tablet
50 - 100 mg PO BIDPRN PRN (Reason: pain)
ammonium lactate 12 % Cream
1 applic TOPICAL DAILY
Rx Instructions:
legs with stasis dermatitis
letrozole 2.5 mg Tablet
2.5 mg PO DAILY
clobetasol 0.05 % Cream
1 applic TOPICAL DAILY PRN (Reason: stasis dermatitis )
acetaminophen 650 mg Tablet Extended Release
1,300 mg PO Q8HPRN PRN (Reason: pain)
propafenone 150 mg Tablet
150 mg PO TID
ferrous sulfate 325 mg (65 mg iron) Tablet
325 mg PO DAILY
biotin
1 tab PO DAILY
aspirin [aspirin] 81 mg tablet,delayed release (DR/EC)
81 mg PO DAILY Qty: 1 0RF
fluticasone furoate-vilanterol [Breo Ellipta] 100-25 mcg/dose Blister With Device
1 inh INHALATION DAILY
hydrocodone-acetaminophen 5-325 mg tablet
1 tab PO Q8H PRN (Reason: Pain) Qty: 5 0RF
Referrals:
Benjamín Mast Jr., DO [Family Provider, Internal Medicine]
Interventions
Interventions:
*Risk Screen - Suicide Last Done: 12/19/24 10:01
*General Assessment Last Done: 12/19/24 11:39
*Neglect/Abuse Screening Last Done: 12/19/24 10:01
*ED- Fall Risk Assessment Last Done: 12/19/24 11:39
*ED COVID-19 Vaccine History Last Done: 12/19/24 11:39
Discharge Date and Time
Print Language: MACEDONIAN
[2024-12-19 10:58] LABS: ALT (SGPT) 13 U/L (0-35); AST (SGOT) 17 U/L (14-36); Albumin 4.2 g/dl (3.5-5.0); Alkaline Phosphatase 61 U/L (38-126); Blood Urea Nitrogen 63 mg/dl (7-17); Calcium 10.5 mg/dl (8.4-10.2); Carbon Dioxide 34 mmol/L (22-30); Chloride 85 mmol/L (98-107); Estimated Creatinine Clearance 13 ml/min; Glucose 97 mg/dl (70-99); Magnesium 1.7 mg/dl (1.6-2.3); Potassium 3.3 mmol/L (3.5-5.1); Sodium 132 mmol/L (135-145); Total Bilirubin 1.6 mg/dl (0.2-1.3); Total Protein 6.7 g/dl (6.3-8.2); eGFR 11.55
--- NOTE | 2024-12-19 12:13 | W.CON.NEPH ---
Consultation
-
Date/Time Consultation Requested: 12/19/2024 12:15pm
Date/Time Consultation Performed: 12/19/2024 12:15 PM
Requesting Provider: Dr. Magui Metz
Performing Provider: Dr. Germain
Reason for Consultation: Acute kidney injury
Medical History
-
Chief Complaint: Acute kidney injury
History of Present Illness:
Patient is a 74-year-old female with a past medical history of CKD stage 3b as noted by a creatinine of 2.1 from December 18, 2023, congestive heart failure maintained on torsemide, hypothyroidism on levothyroxine. The patient presented following the
evaluation of her primary care doctor where she had been seen for frequent vomiting. She was noted to have an elevated creatinine of 4.2 and was sent to the hospital. Patient is a habitual marijuana smoker.
Past Medical History
1. Permanent atrial fibrillation
2. Hypertension.
3. Non-obstructive coronary artery disease.
4. First degree AV block.
5. Chronic diastolic heart failure, preserved ejection fraction.
6. Mild tricuspid regurgitation.
7 Venous insufficiency with stasis dermatitis.
8. COPD.
9. IgE-mediated allergic asthma, moderate and persistent.
10. Documented obstructive sleep apnea without current device.
11. Chronic kidney disease, stage 3B-4.
12. GERD.
13. Hiatal hernia.
14. Colon polyps.
15. Diverticulosis.
16. Irritable bowel syndrome with diarrhea.
17. Hepatic steatosis.
18. Balance difficulties.
19. Ambulatory dysfunction with history of falls.
20. Vertigo.
21. Restless leg syndrome.
22. Osteoarthritis, status post left total knee arthroplasty 2009.
23. Spinal stenosis.
24. Multinodular goiter, status post total thyroidectomy 2008.
25. Post-surgical hypothyroidism.
26. Right-sided breast cancer, DCIS, status post right lumpectomy
and radiation 2019.
27. Right breast radiation dermatitis and necrosis, status post
open debridement of right breast wound 08/2020.
28. Iron deficiency anemia, requiring previous IV iron.
29. Gout.
30. Urinary stress incontinence.
31. Lichen planus.
32. Osteopenia.
33. COVID 19, 09/05/2023, without residual side effects.
34. Mild hypercalcemia.
35. Morbid obesity, BMI 44.3.
36. Remote history of tobacco abuse.
37. Daily alcohol.
Social History
Tobacco: Smoker
Alcohol: Occasional
Drug: Marijuana
Family History
Family History: Not Pertinent
Allergies / Home Medications
Allergy/AdvReac Type Severity Reaction Status Date / Time
lisinopril Allergy COUGH Verified 12/19/24 10:01
NSAIDS (Non-Steroidal Allergy cannot Verified 12/19/24 10:01
Anti-Inflamma take nsaids
�Medication �Instructions �Recorded �Confirmed �Type
cholecalciferol (vitamin D3) 25 1,000 unit PO DAILY Supplement 03/05/20 12/19/24 History
mcg (1,000 unit) capsule (Vitamin
D3)
levothyroxine 175 mcg tablet 175 mcg PO MOTUWETHFRSA Thyroid 03/05/20 12/19/24 History
omeprazole 20 mg capsule,delayed 20 mg PO QPM Gastrointestinal issue 03/05/20 12/19/24 History
release
torsemide 20 mg tablet 20 mg PO Q48H Fluid 03/05/20 12/19/24 History
retention/Swelling
albuterol sulfate 90 mcg/actuation 1 puff inhalation R Q4HPRN PRN 09/28/20 12/19/24 History
aerosol inhaler asthma
loperamide 2 mg capsule 2 mg PO Q4HPRN PRN diarrhea 09/28/20 12/19/24 History
allopurinol 100 mg tablet 200 mg PO DAILY 05/10/23 12/19/24 History
denosumab 60 mg/mL subcutaneous 60 mg SC [id number] 05/10/23 12/19/24 History
syringe (Prolia)
ropinirole 0.25 mg tablet 0.25 mg PO HS 05/10/23 12/19/24 History
rosuvastatin 20 mg tablet (Crestor) 20 mg PO DAILY 05/10/23 12/19/24 History
letrozole 2.5 mg tablet 2.5 mg PO DAILY 08/04/23 12/19/24 History
propafenone 150 mg tablet 150 mg PO TID 09/04/23 12/19/24 History
biotin 1 mg tablet 1 mg PO DAILY ##0 09/15/23 12/19/24 History
ferrous sulfate 325 mg (65 mg 325 mg PO DAILY 09/15/23 12/19/24 History
iron) tablet
aspirin 81 mg tablet,delayed 81 mg PO DAILY #1 tab 09/19/23 12/19/24 Rx
release
fluticasone furoate 100 1 inh inhalation R DAILY 11/03/23 12/19/24 History
mcg-vilanterol 25 mcg/dose
inhalation powder (Breo Ellipta)
gabapentin 300 mg capsule 300 mg PO HS 12/19/24 12/19/24 History
tirzepatide (weight loss) 2.5 2.5 mg SC BEJARANO 12/19/24 12/19/24 History
mg/0.5 mL subcutaneous pen
injector (Zepbound)
torsemide 20 mg tablet 40 mg PO Q48H 12/19/24 12/19/24 History
Review of Systems
-
History Source: Patient
All other systems: Negative unless noted
Constitutional: Weight Loss
Respiratory: No Symptoms
Cardiac: No Symptoms
Abdomen/GI: Vomiting
: Incontinence
Physical Exam
Vital Signs
Vital Signs
Temp Pulse Resp BP Pulse Ox
97.7 F 88 20 111/65 95
12/19/24 10:01 12/19/24 10:01 12/19/24 10:01 12/19/24 10:01 12/19/24 10:56
Lab Results
12/19/24 10:19
12/19/24 10:19
WBC 8.5 10^3/uL (4.8-10.8) 12/19/24 10:19
RBC 3.99 10^6/uL (4.20-5.40) L 12/19/24 10:19
Hgb 12.7 g/dL (12.0-16.0) 12/19/24 10:19
Hct 37.6 % (37.0-47.0) 12/19/24 10:19
Plt Count 250 10^3/uL (130-400) 12/19/24 10:19
Sodium 132 mmol/L (135-145) L 12/19/24 10:19
Potassium 3.3 mmol/L (3.5-5.1) L 12/19/24 10:19
Chloride 85 mmol/L (98-107) L 12/19/24 10:19
Carbon Dioxide 34 mmol/L (22-30) H 12/19/24 10:19
BUN 63 mg/dl (7-17) H 12/19/24 10:19
Creatinine 3.9 mg/dL (0.6-1.0) H 12/19/24 10:19
eGFR 11.55 12/19/24 10:19
Glucose 97 mg/dl (70-99) 12/19/24 10:19
Calcium 10.5 mg/dl (8.4-10.2) H 12/19/24 10:19
Albumin 4.2 g/dl (3.5-5.0) 12/19/24 10:19
Physical Exam
General: AOx3, Nontoxic , NAD obese
HEENT: PERRL, EOMI, Anicteric, Conjunctivae Clear, Ear/Nose Intact, Hearing Normal, Oropharynx Clear/Moist, Dentition Intact, Facial Symmetry, Neck Supple, Neck: Trachea Midline, No JVD and No Thyromegaly, no Bruits
Respiratory: fine Crackles at bases with uscultation bilaterally with normal lung excursion
Cardiac: S1/S2 and Regular Rate/Rhythm
Breast: Deferred by me
Abdomen: Soft, Nontender, Nondistended, Normal Bowel Sounds and No Hepatosplenomegaly
Rectal: Deferred by Provider
Genito-urinary: No Costovertebral Tenderness
Extremities: No Clubbing, No Cyanosis and Noted trace pitting Edema
Skin: No Rash or open lesions
Neuro: Nonfocal/Grossly Intact, CN II-XII (Intact) and Strength (Musculoskeletal exam 5 out of 5 both upper and lower extremities)
Hematologic/Lymphatic: No Cervical Lymphadenopathy, No Submandibular Lymphadenopathy and No Supraclavicular Lymphadenopathy
Psych: Mood/afflect pleasant, Insight/judgement good and Appropriate
Vascular: plus 1 pedal and radial pulses
Data Reviewed
-
Radiology: Report Reviewed by me (Will obtain chest x-ray for personal review re: hx of CHF)
Labs: Labs Reviewed by me (BMP CBC)
Old Records: Reviewed (Reviewed previous creatinine level of 2.1 from December 18, 2023 in the electronic medical record)
Assessment/Plan
-
Impression:
ANDREW
Hyponatremia
Metabolic Alkalosis
Hx of CHF (HFpEF)
History of AFIB
Nonobstructive coronary artery disease
Plan:
ANDREW:
- Likely due to prerenal etiology with vomiting and concurrent diuretic use
- This is supported by metabolic alkalosis and hypochloremia
- Check fractional excretion of sodium
- Isotonic saline provided: 1liter of NSS at 100cc per hr to start
- would check CXR
- Withhold torsemide and Aldactone
- Check postvoid bladder scan to assess for obstructive component given history of urinary incontinence
- vomiting could be induced by GLP-1, again likel contributing to volume losses
- Replete potassium ~40meq
--- NOTE | 2024-12-19 12:15 | HPS.HSE ---
Family Physician
-
Family Physician: Benjamín Mast Jr.
Chief Complaint
-
Nausea and vomiting, abnormal renal function on outpatient labs
History of Present Illness
Ms. Hernandez is a 74-year-old female with a medical history of HFpEF, asthma/COPD, CKD stage IIIb/IV, breast cancer (stage 0, status post right lumpectomy and radiation 2019), acquired hypothyroidism (status post total thyroidectomy 2008), A-fib
(status post Watchman device 09/19/2023), obesity (Zepbound weekly injections), and sleep apnea (does not use NIPPV) who presented with nausea and vomiting with associated fatigue for the past few weeks. She was evaluated by her PCP due to her
symptoms and outpatient labs revealed worsening renal function with a creatinine of 4.2 which is why she was instructed to seek medical attention in the emergency department. Of note her Zepbound weekly injections were increased from 2.5 mg to 5 mg
prior to symptom onset. She is only able to tolerate very little p.o. during that time. She reports intermittent diarrhea which currently has resolved. She smokes marijuana in the evenings to help her sleep. Her spironolactone was recently
discontinued by her PCP. She denies abdominal pain, fevers, shortness of breath, or chest pain.
In the ED, she was normotensive and afebrile. Her labs were remarkable for creatinine of 3.9/BUN 63, sodium 132, potassium 3.3, chloride 85, bicarb 34. She was admitted for further evaluation and management of ANDREW on CKD in the setting of ongoing
GI symptoms.
Medical History
Past Medical History
Past Medical History: Reports Other
Additional Past Medical History:
HFpEF, asthma/COPD, CKD stage IIIb/IV, breast cancer (stage 0, status post right lumpectomy and radiation 2019), acquired hypothyroidism (status post total thyroidectomy 2008), A-fib (status post Watchman device 09/19/2023), obesity (Zepbound weekly
injections), and sleep apnea (does not use NIPPV)
Past Surgical History: Reports Other
Additional Past Surgical History:
total thyroidectomy 2009, Watchman device 09/19/2023, right lumpectomy
Social History
Tobacco: Former Smoker ([id number] former smoker)
Alcohol: None
Drug: Marijuana
Family History
Family History: Not pertinent
Allergies / Home Medications
Allergies reflects when Allergies were last updated in [id number].
Home Medications with original date entered in [id number]
Allergy/Medication List:
Allergies
Allergy/AdvReac Type Severity Reaction Status Date / Time
lisinopril Allergy COUGH Verified 12/19/24 10:01
NSAIDS (Non-Steroidal Allergy cannot Verified 12/19/24 10:01
Anti-Inflamma take nsaids
Home Medications
cholecalciferol (vitamin D3) 25 mcg (1,000 unit) capsule (Vitamin D3) 1,000 unit PO DAILY Supplement 03/05/20
levothyroxine 175 mcg tablet 175 mcg PO MOTUWETHFRSA Thyroid 03/05/20
omeprazole 20 mg capsule,delayed release 20 mg PO QPM Gastrointestinal issue 03/05/20
torsemide 20 mg tablet 20 mg PO Q48H Fluid retention/Swelling 03/05/20
albuterol sulfate 90 mcg/actuation aerosol inhaler 1 puff inhalation R Q4HPRN PRN asthma 09/28/20
loperamide 2 mg capsule 2 mg PO Q4HPRN PRN diarrhea 09/28/20
allopurinol 100 mg tablet 200 mg PO DAILY 05/10/23
denosumab 60 mg/mL subcutaneous syringe (Prolia) 60 mg SC [id number] 05/10/23
ropinirole 0.25 mg tablet 0.25 mg PO HS 05/10/23
rosuvastatin 20 mg tablet (Crestor) 20 mg PO DAILY 05/10/23
letrozole 2.5 mg tablet 2.5 mg PO DAILY 08/04/23
propafenone 150 mg tablet 150 mg PO TID 09/04/23
biotin 1 mg tablet 1 mg PO DAILY ##0 09/15/23
ferrous sulfate 325 mg (65 mg iron) tablet 325 mg PO DAILY 09/15/23
aspirin 81 mg tablet,delayed release 81 mg PO DAILY #1 tab 09/19/23
fluticasone furoate 100 mcg-vilanterol 25 mcg/dose inhalation powder (Breo Ellipta) 1 inh inhalation R DAILY 11/03/23
gabapentin 300 mg capsule 300 mg PO HS 12/19/24
tirzepatide (weight loss) 2.5 mg/0.5 mL subcutaneous pen injector (Zepbound) 2.5 mg SC BEJARANO 12/19/24
torsemide 20 mg tablet 40 mg PO Q48H 12/19/24
Review of Systems
-
History Source: Patient
A 12 point ROS was completed and negative except as noted: Yes
Constitutional: Reports Fatigue
Abdomen/GI: Reports Nausea, Vomiting and Diarrhea
Physical Exam
Vital Signs
Vital Signs
Temp Pulse Resp BP Pulse Ox
97.7 F 88 20 111/65 95
12/19/24 10:01 12/19/24 10:01 12/19/24 10:01 12/19/24 10:01 12/19/24 10:56
Physical Exam
General: No Apparent Distress
Laboratory Results
-
12/19/24 10:19
12/19/24 10:19
Laboratory Results
Total Bilirubin 1.6 mg/dl (0.2-1.3) H 12/19/24 10:19
AST 17 U/L (14-36) 12/19/24 10:19
ALT 13 U/L (0-35) 12/19/24 10:19
Alkaline Phosphatase 61 U/L (38-126) 12/19/24 10:19
Impression/Plan
-
General: No Apparent Distress, Comfortable and Conversant
HEENT: NormoCephalic, Moist mucous membranes, Atraumatic
Respiratory: Clear and Non Labored Respirations
Cardiac: S1/S2 and Regular Rhythm; No Rub or Gallop
GI: Soft, Non Tender, Non Distended and Normal Bowel Sounds
Musculoskeletal: 1+ edema bilateral lower extremities to mid baird, no deformity
Skin: Warm and dry
: NO Tim
Neuro: Awake, Alert, Nonfocal/grossly intact
Psych: Calm and Intact Judgment/Insight
Ms. Hernandez is a 74-year-old female with a medical history of HFpEF, asthma/COPD, CKD stage IIIb/IV, breast cancer (stage 0, status post right lumpectomy and radiation 2019), acquired hypothyroidism (status post total thyroidectomy 2008), A-fib
(status post Watchman device 09/19/2023), obesity (Zepbound weekly injections), and sleep apnea (does not use NIPPV) who presented with nausea and vomiting with associated fatigue for the past few weeks. She was evaluated by her PCP due to her
symptoms and outpatient labs revealed worsening renal function with a creatinine of 4.2 which is why she was instructed to seek medical attention in the emergency department. Of note her Zepbound weekly injections were increased from 2.5 mg to 5 mg
prior to symptom onset. She is only able to tolerate very little p.o. during that time. She reports intermittent diarrhea which currently has resolved. She smokes marijuana in the evenings to help her sleep. Her spironolactone was recently
discontinued by her PCP. She denies abdominal pain, fevers, shortness of breath, or chest pain.
In the ED, she was normotensive and afebrile. Her labs were remarkable for creatinine of 3.9/BUN 63, sodium 132, potassium 3.3, chloride 85, bicarb 34. She was admitted for further evaluation and management of ANDREW on CKD in the setting of ongoing
GI symptoms.
ANDREW on CKD:
- Baseline CKD stage IIIb/IV
- Suspect worsening renal function is due to GI symptoms which may have been triggered by increased dose of Zepbound, GI symptoms also possibly exacerbated by marijuana use
- Will hold diuretic for now and give IV fluids cautiously considering history of HFpEF
- Check urine labs, appreciate nephrology guidance
- P.o. diet as tolerated, antiemetics as needed
- Monitor renal function on daily labs
Hyponatremia:
- Mild, likely hypovolemic
- Giving IV fluids, will monitor
Hypokalemia:
- Mild with serum potassium 3.3
- Holding diuretic, will monitor on a.m. labs, will not replete right now considering worsening renal function
A-fib:
- Currently rate controlled
- Continue propafenone, home metoprolol recently discontinued due to hypotension
- Not on anticoagulation, status post Watchman device
COPD/asthma:
- [id number] former smoker
- Currently without exacerbation
- Continue scheduled breathing treatments with additional as needed
- Does not use NIPPV at home
HFpEF:
- Chronic, currently compensated
- Holding home torsemide for now as she appears hypovolemic
- Giving fluids cautiously for ANDREW
- Recently discontinued metoprolol due to hypotension
- Not on afterload reduction presumably due to hypotension
- Outpatient cardiology follow-up
Hypothyroidism:
- Acquired after total thyroidectomy
- Continue levothyroxine 175 mcg daily except for Monday
- Will check TSH
History of breast cancer:
- Stage 0, status postlumpectomy and radiation
- Continue daily letrozole
DVT prophylaxis: SCDs
CODE STATUS: Full code
Total time spent on today's encounter was 60 minutes
[2024-12-19 12:36] LABS: Urine Albumin 2+ (Neg - Trace); Urine Bilirubin Negative (Negative); Urine Character Slightly Cloudy (Clear); Urine Color Yellow; Urine Glucose Negative (Negative); Urine Ketone Negative (Negative); Urine Leukocyte 3+ (Negative); Urine Nitrite Negative (Negative); Urine Occult Blood 4+ (Negative); Urine Urobilinogen Negative (Neg - 1+)
[2024-12-19 12:38] VITALS: BP 95/63
[2024-12-19 13:13] LABS: Urine Amorphous Seen; Urine White Cell 70-80 /HPF (0-5)
--- NOTE | 2024-12-19 13:27 | PTCARENOTE ---
Received pt from ED via stretcher. Pt ambulated to bed with assist x1. AAOx3. No complaints of pain. VSS. Assessed and oriented to room. Pt verbalized understanding of call ramos. Call ramos within close reach. Will cont to monitor.
[2024-12-19 13:32] VITALS: BP 120/70; BMI 39.0
[2024-12-19 13:45] VITALS: BMI 39.0
[2024-12-19 15:00] VITALS: BP 104/60
[2024-12-19] MEDS: RYTHMOL 150 MG PO ×2 (15:07→22:43)
[2024-12-19] MEDS: NSS 1000 IV (15:07)
--- NOTE | 2024-12-19 15:17 | PTCARENOTE ---
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 Rhythm= NSR, first degree, prolonged qt.
[2024-12-19 15:52] LABS: Urine Sodium 57 mmol/L (30-90)
[2024-12-19 16:58] LABS: TSH Reflex To Free T4 0.79 uIU/ml (0.47-4.68)
[2024-12-19] MEDS: PROTONIX 40 MG PO (17:17)
[2024-12-19] MEDS: SYMBICORT 160/4.5 MCG INHALER 2 PUFF INH (19:22)
[2024-12-19 19:47] VITALS: BP 98/46
[2024-12-19] MEDS: NEURONTIN 300 MG PO (22:42)
[2024-12-19] MEDS: REQUIP 0.25 MG PO (22:42)
[2024-12-19 23:27] VITALS: BP 104/57
[2024-12-20 03:11] VITALS: BP 107/59
[2024-12-20 05:48] LABS: % Basophils 0.3 % (0-2); % Immature Granulocytes 0.4 % (0-0.5); % Lymphocytes 13.9 % (20.5-51.1); % Monocytes 9.4 % (1.7-9.3); Absolute Eosinophils 0.1 10^3/uL (0-0.7); Absolute Lymphocytes 0.9 10^3/uL (1.2-3.4); Absolute Monocytes 0.6 10^3/uL (0.1-0.6); Hematocrit 33.7 % (37.0-47.0); Hemoglobin 11.3 g/dL (12.0-16.0); Mean Corp Hgb Conc. 33.5 g/dL (33.0-37.0); Mean Corpuscular Volume 95.5 fL (81.0-99.0); Mean Platelet Volume 10.3 fL (7.4-10.4); Nucleated Red Blood Cells % 0 %; Platelet Count 221 10^3/uL (130-400); Red Blood Cell Count 3.53 10^6/uL (4.20-5.40); Red Cell Dist. Width 14.5 % (11.5-14.5); White Blood Cell Count 6.7 10^3/uL (4.8-10.8)
[2024-12-20 06:13] LABS: Blood Urea Nitrogen 53 mg/dl (7-17); Carbon Dioxide 34 mmol/L (22-30); Chloride 89 mmol/L (98-107); Estimated Creatinine Clearance 14 ml/min; Glucose 92 mg/dl (70-99); Magnesium 1.9 mg/dl (1.6-2.3); Phosphorus 4.2 mg/dl (2.5-4.5); Sodium 133 mmol/L (135-145); eGFR 12.71
[2024-12-20] MEDS: SYNTHROID 175 MCG PO (06:18)
[2024-12-20 07:07] LABS: Hepatitis C Antibody Negative (Negative)
[2024-12-20] MEDS: SYMBICORT 160/4.5 MCG INHALER 2 PUFF INH ×2 (07:35→20:13)
[2024-12-20 07:55] VITALS: BP 109/64
[2024-12-20] MEDS: CRESTOR 10 MG PO (08:04)
[2024-12-20] MEDS: ASPIR LOW (ENTERIC COATED) 81 MG PO (08:04)
[2024-12-20] MEDS: FEOSOL 325 MG PO (08:05)
[2024-12-20] MEDS: VITAMIN D3 (cholecalciferol) 25 MCG PO (08:05)
[2024-12-20] MEDS: ZYLOPRIM 200 MG PO (08:05)
[2024-12-20] MEDS: FEMARA 2.5 MG PO (08:05)
--- NOTE | 2024-12-20 08:36 | CM ---
Alert awake oriented patient who lives alone in a 1 story home with 0 step to enter.She is independent in activates of daily living.She does drive .She uses a cane. Offered VN she declined need.
Had [facility] in past . No SNF hx
Pharmacy [facility]
PCP Dr Mast
PLAN Home with no needs
[2024-12-20] MEDS: RYTHMOL 150 MG PO ×3 (09:15→20:53)
[2024-12-20] MEDS: KCL 40 MEQ PO (09:16)
[2024-12-20] MEDS: SENOKOT-S 1 TABLET PO (09:17)
[2024-12-20 11:26] VITALS: BP 102/61
--- NOTE | 2024-12-20 11:26 | W.PN.NEPH.PH ---
Today's Communication / Plan
-
replete k
labs in am
Assessment/Plan
-
Impression:
ANDREW with CKD 3vs 4 -baseline cr 2
Hyponatremia
Metabolic Alkalosis
Hx of CHF (HFpEF)
History of AFIB
Nonobstructive coronary artery disease
COPD/asthma
Hypothyroidism
History of breast cancer
Plan:
ANDREW:
- Likely due to prerenal etiology with vomiting and concurrent diuretic use
cr improving post IVF
monitor labs off diuretics and encourage po intake
replace k
stable hyponatremia and met alkalosis
vol status seem stable, cont to Withhold torsemide and Aldactone
vomiting could be induced by GLP-1, again likel contributing to volume losses -currently on hold
- Replete potassium -total 80meq today
labs in am
-
-
Date of Service: December 20, 2024
CC / HPI / ROS
-
Chief Complaint:
ANDREW, CKD
History of Present Illness:
cr improving to 3.6
k low 3.0, sodium stable 133
Bp stable
Review of Systems:
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
c/o back pain from bed
Labs
-
Labs:
WBC 6.7 10^3/uL (4.8-10.8) 12/20/24 05:11
RBC 3.53 10^6/uL (4.20-5.40) L 12/20/24 05:11
Hgb 11.3 g/dL (12.0-16.0) L 12/20/24 05:11
Hct 33.7 % (37.0-47.0) L 12/20/24 05:11
Plt Count 221 10^3/uL (130-400) 12/20/24 05:11
Sodium 133 mmol/L (135-145) L 12/20/24 05:11
Potassium 3.0 mmol/L (3.5-5.1) L 12/20/24 05:11
Chloride 89 mmol/L (98-107) L 12/20/24 05:11
Carbon Dioxide 34 mmol/L (22-30) H 12/20/24 05:11
BUN 53 mg/dl (7-17) H 12/20/24 05:11
Creatinine 3.6 mg/dL (0.6-1.0) H 12/20/24 05:11
eGFR 12.71 12/20/24 05:11
Glucose 92 mg/dl (70-99) 12/20/24 05:11
Calcium 10.0 mg/dl (8.4-10.2) 12/20/24 05:11
Phosphorus 4.2 mg/dl (2.5-4.5) 12/20/24 05:11
Albumin 4.2 g/dl (3.5-5.0) 12/19/24 10:19
Physical Exam
-
Vital Signs:
Vital Signs
Temp Pulse Resp BP Pulse Ox
98.3 F 82 16 109/64 98
12/20/24 07:55 12/20/24 07:55 12/20/24 07:55 12/20/24 07:55 12/20/24 07:55
Cardiovascular:: Regular rate and rhythm
Respiratory:: Bilateral: CTA
Lung Excursion:: Normal
Abdomen:: Nontender and Soft
Extremity Edema:: +1: Bilateral: (seem chronic)
Tim Catheter: No
[2024-12-20 11:59] VITALS: BMI 39.0
--- NOTE | 2024-12-20 12:37 | W.PN.HOSP.TC ---
Today's Communication/Plan
-
Assessment / Plan
Assessment / Plan
General: No Apparent Distress, Comfortable and Conversant
HEENT: NormoCephalic, Moist mucous membranes, Atraumatic
Respiratory: Clear and Non Labored Respirations
Cardiac: S1/S2 and Regular Rhythm; No Rub or Gallop
GI: Soft, Non Tender, Non Distended and Normal Bowel Sounds
Musculoskeletal: Trace bilateral lower extremity edema, no deformity
Skin: Warm and dry
: NO Tim
Neuro: Awake, Alert, Nonfocal/grossly intact
Psych: Calm and Intact Judgment/Insight
Ms. Hernandez is a 74-year-old female with a medical history of HFpEF, asthma/COPD, CKD stage IIIb/IV, breast cancer (stage 0, status post right lumpectomy and radiation 2019), acquired hypothyroidism (status post total thyroidectomy 2008), A-fib
(status post Watchman device 09/19/2023), obesity (Zepbound weekly injections), and sleep apnea (does not use NIPPV) who presented with nausea and vomiting with associated fatigue for the past few weeks. She was evaluated by her PCP due to her
symptoms and outpatient labs revealed worsening renal function with a creatinine of 4.2 which is why she was instructed to seek medical attention in the emergency department. Of note her Zepbound weekly injections were increased from 2.5 mg to 5 mg
prior to symptom onset. She is only able to tolerate very little p.o. during that time. She reports intermittent diarrhea which currently has resolved. She smokes marijuana in the evenings to help her sleep. Her spironolactone was recently
discontinued by her PCP. She denies abdominal pain, fevers, shortness of breath, or chest pain.
In the ED, she was normotensive and afebrile. Her labs were remarkable for creatinine of 3.9/BUN 63, sodium 132, potassium 3.3, chloride 85, bicarb 34. She was admitted for further evaluation and management of ANDREW on CKD in the setting of ongoing
GI symptoms.
ANDREW on CKD:
- Baseline CKD stage IIIb/IV
- Renal function slightly improved today, given 1 L normal saline yesterday
- Suspect presenting renal function is due to GI symptoms which may have been triggered by increased dose of Zepbound, GI symptoms also possibly exacerbated by marijuana use
- Continue holding diuretic
- Appreciate nephrology guidance
- P.o. diet as tolerated, antiemetics as needed
- Monitor renal function on daily labs
Hyponatremia:
- Mild, stable, likely hypovolemic
- Will monitor
Hypokalemia:
- Potassium 3.0 left this morning
- Replete p.o.
- Continue holding diuretic, monitor
A-fib:
- Currently rate controlled
- Continue propafenone, home metoprolol recently discontinued due to hypotension
- Not on anticoagulation, status post Watchman device
COPD/asthma:
- [id number] former smoker
- Currently without exacerbation
- Continue scheduled breathing treatments with additional as needed
- Does not use NIPPV at home
HFpEF:
- Chronic, currently compensated
- Holding home torsemide for now as she appears hypovolemic
- Further IV fluids cautiously as needed
- Recently discontinued metoprolol due to hypotension
- Not on afterload reduction presumably due to hypotension
- Outpatient cardiology follow-up
Hypothyroidism:
- Acquired after total thyroidectomy
- Continue levothyroxine 175 mcg daily except for Monday
- TSH within normal limits
History of breast cancer:
- Stage 0, status postlumpectomy and radiation
- Continue daily letrozole
DVT prophylaxis: SCDs
CODE STATUS: Full code
Total time spent on today's encounter was 40 minutes
Anticipated Discharge: 24 - 48 hours
Subjective/Interval History
-
Date of Service: December 20, 2024
Patient was seen and examined at bedside this morning. Comfortable and without nausea but still with poor appetite. Did tolerate breakfast. No acute events overnight.
Objective Data
-
Labs:
Laboratory Results
12/20/24
05:11
WBC 6.7
Hgb 11.3 L
Hct 33.7 L
Plt Count 221
Sodium 133 L
Potassium 3.0 L
Chloride 89 L
Carbon Dioxide 34 H
BUN 53 H
Creatinine 3.6 H
Glucose 92
Calcium 10.0
Vital Signs:
Vital Signs
Temp Pulse Resp BP Pulse Ox
98.4 F 79 17 102/61 98
12/20/24 11:26 12/20/24 11:26 12/20/24 11:26 12/20/24 11:26 12/20/24 11:26
I&O
12/19/24 12/20/24 12/21/24
06:59 06:59 06:59
Intake Total 1080 / 1080
Balance 1080 / 1080
Review of Systems
-
History Source: Patient
All other systems: Reviewed and negative
Physical Exam
-
General: No Apparent Distress
[2024-12-20 15:00] VITALS: BP 133/65
[2024-12-20] MEDS: PROTONIX 40 MG PO (17:37)
[2024-12-20 19:55] VITALS: BP 102/64
--- NOTE | 2024-12-20 20:35 | PTCARENOTE ---
Patient is c/o 02/09 chronic back pain from hx spinal stenosis. States she normally takes extra strength Tylenol or tramadol at home, asking for pain control. No PRNs available. Notified SAMANTA [place] -- with ANDREW and labile BPs, will try
Lidocaine patch at this time. Will obtain and provide to patient, will monitor.
[2024-12-20] MEDS: LIDOCAINE 4% PATCH 1 PATCH TOPICAL (20:53)
[2024-12-20] MEDS: REQUIP 0.25 MG PO (20:54)
[2024-12-20] MEDS: KCL 20 MEQ PO (20:54)
[2024-12-20] MEDS: NEURONTIN 300 MG PO (20:54)
[2024-12-20 23:54] VITALS: BP 111/66
[2024-12-21 04:02] VITALS: BP 105/60
[2024-12-21] MEDS: SYNTHROID 175 MCG PO (06:39)
[2024-12-21 07:00] VITALS: BP 95/65
[2024-12-21] MEDS: RYTHMOL 150 MG PO ×3 (07:40→20:13)
[2024-12-21] MEDS: ASPIR LOW (ENTERIC COATED) 81 MG PO (07:40)
[2024-12-21] MEDS: FEOSOL 325 MG PO (07:40)
[2024-12-21] MEDS: FEMARA 2.5 MG PO (07:40)
[2024-12-21] MEDS: ZYLOPRIM 200 MG PO (07:40)
[2024-12-21] MEDS: CRESTOR 10 MG PO (07:40)
[2024-12-21] MEDS: VITAMIN D3 (cholecalciferol) 25 MCG PO (07:40)
[2024-12-21] MEDS: SYMBICORT 160/4.5 MCG INHALER 2 PUFF INH ×2 (07:41→20:55)
[2024-12-21] MEDS: SENOKOT-S 1 TABLET PO ×2 (07:43→20:19)
[2024-12-21] MEDS: MIRALAX 17 GRAMS PO (07:43)
[2024-12-21 09:11] LABS: Blood Urea Nitrogen 43 mg/dl (7-17); Calcium 10.7 mg/dl (8.4-10.2); Carbon Dioxide 35 mmol/L (22-30); Chloride 91 mmol/L (98-107); Estimated Creatinine Clearance 16 ml/min; Glucose 94 mg/dl (70-99); Phosphorus 3.5 mg/dl (2.5-4.5); Potassium 3.9 mmol/L (3.5-5.1); Sodium 134 mmol/L (135-145); eGFR 14.11
[2024-12-21 11:28] VITALS: BP 104/55
--- NOTE | 2024-12-21 12:13 | W.PN.NEPH.PH ---
Today's Communication / Plan
-
follow labs off diuretics and IVF
Assessment/Plan
-
Impression:
ANDREW with CKD 3vs 4 -baseline cr 2
Hyponatremia
Metabolic Alkalosis
Hx of CHF (HFpEF)
History of AFIB
Nonobstructive coronary artery disease
COPD/asthma
Hypothyroidism
History of breast cancer
Plan:
ANDREW:
- Likely due to prerenal etiology with vomiting and concurrent diuretic use
cr improving off IVF
monitor labs off diuretics
stable hyponatremia and met alkalosis
vol status seem stable, cont to Withhold torsemide and Aldactone
BP stable
labs in am
-
-
Date of Service: December 21, 2024
CC / HPI / ROS
-
Chief Complaint:
ANDREW, CKD
History of Present Illness:
cr improving to 3.3
k better at 3.9, sodium stable 134
Bp stable 'met alaklosis 35
Review of Systems:
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
c/o back pain from bed-better today
Labs
-
Labs:
WBC 6.7 10^3/uL (4.8-10.8) 12/20/24 05:11
RBC 3.53 10^6/uL (4.20-5.40) L 12/20/24 05:11
Hgb 11.3 g/dL (12.0-16.0) L 12/20/24 05:11
Hct 33.7 % (37.0-47.0) L 12/20/24 05:11
Plt Count 221 10^3/uL (130-400) 12/20/24 05:11
Sodium 134 mmol/L (135-145) L 12/21/24 07:55
Potassium 3.9 mmol/L (3.5-5.1) D 12/21/24 07:55
Chloride 91 mmol/L (98-107) L 12/21/24 07:55
Carbon Dioxide 35 mmol/L (22-30) H 12/21/24 07:55
BUN 43 mg/dl (7-17) H 12/21/24 07:55
Creatinine 3.3 mg/dL (0.6-1.0) H 12/21/24 07:55
eGFR 14.11 12/21/24 07:55
Glucose 94 mg/dl (70-99) 12/21/24 07:55
Calcium 10.7 mg/dl (8.4-10.2) H 12/21/24 07:55
Phosphorus 3.5 mg/dl (2.5-4.5) 12/21/24 07:55
Albumin 4.2 g/dl (3.5-5.0) 12/19/24 10:19
Physical Exam
-
Vital Signs:
Vital Signs
Temp Pulse Resp BP Pulse Ox
98 F 86 16 104/55 94
12/21/24 11:28 12/21/24 11:28 12/21/24 11:28 12/21/24 11:28 12/21/24 11:28
Cardiovascular:: Regular rate and rhythm
Respiratory:: Bilateral: CTA
Lung Excursion:: Normal
Abdomen:: Nontender and Soft
Extremity Edema:: +1: Bilateral: (seem chronic)
Tim Catheter: No
--- NOTE | 2024-12-21 13:24 | W.PN.HOSP.TC ---
Today's Communication/Plan
-
Assessment / Plan
Assessment / Plan
General: No Apparent Distress, Comfortable and Conversant
HEENT: NormoCephalic, Moist mucous membranes, Atraumatic
Respiratory: Clear and Non Labored Respirations
Cardiac: S1/S2 and Regular Rhythm; No Rub or Gallop
GI: Soft, Non Tender, Non Distended and Normal Bowel Sounds
Musculoskeletal: Trace bilateral lower extremity edema, no deformity
Skin: Warm and dry
: NO Tim
Neuro: Awake, Alert, Nonfocal/grossly intact
Psych: Calm and Intact Judgment/Insight
Ms. Hernandez is a 74-year-old female with a medical history of HFpEF, asthma/COPD, CKD stage IIIb/IV, breast cancer (stage 0, status post right lumpectomy and radiation 2019), acquired hypothyroidism (status post total thyroidectomy 2008), A-fib
(status post Watchman device 09/19/2023), obesity (Zepbound weekly injections), and sleep apnea (does not use NIPPV) who presented with nausea and vomiting with associated fatigue for the past few weeks. She was evaluated by her PCP due to her
symptoms and outpatient labs revealed worsening renal function with a creatinine of 4.2 which is why she was instructed to seek medical attention in the emergency department. Of note her Zepbound weekly injections were increased from 2.5 mg to 5 mg
prior to symptom onset. She is only able to tolerate very little p.o. during that time. She reports intermittent diarrhea which currently has resolved. She smokes marijuana in the evenings to help her sleep. Her spironolactone was recently
discontinued by her PCP. She denies abdominal pain, fevers, shortness of breath, or chest pain.
In the ED, she was normotensive and afebrile. Her labs were remarkable for creatinine of 3.9/BUN 63, sodium 132, potassium 3.3, chloride 85, bicarb 34. She was admitted for further evaluation and management of ANDREW on CKD in the setting of ongoing
GI symptoms.
ANDREW on CKD:
- Baseline CKD stage IIIb/IV
- Renal function slightly improved today, given 1 L normal saline so far this admission, will give another 500 cc cautiously considering history of heart failure
- Suspect presenting renal function is due to GI symptoms which may have been triggered by increased dose of Zepbound, GI symptoms also possibly exacerbated by marijuana use
- Continue holding diuretic
- Appreciate nephrology guidance
- P.o. diet as tolerated, antiemetics as needed
- Monitor renal function on daily labs
- Anticipate discharge in the next 24 to 48 hours of renal function continues to improve and if she is able to tolerate a p.o. diet
Hyponatremia:
- Mild, stable, likely hypovolemic
- Will monitor
Hypokalemia:
- Resolved
- Continue holding diuretic, monitor
A-fib:
- Currently rate controlled
- Continue propafenone, home metoprolol recently discontinued due to hypotension
- Not on anticoagulation, status post Watchman device
COPD/asthma:
- [id number] former smoker
- Currently without exacerbation
- Continue scheduled breathing treatments with additional as needed
- Does not use NIPPV at home
HFpEF:
- Chronic, currently compensated
- Holding home torsemide for now as she appears hypovolemic
- Further IV fluids cautiously as needed
- Recently discontinued metoprolol due to hypotension
- Not on afterload reduction presumably due to hypotension
- Outpatient cardiology follow-up
Hypothyroidism:
- Acquired after total thyroidectomy
- Continue levothyroxine 175 mcg daily except for Monday
- TSH within normal limits
History of breast cancer:
- Stage 0, status postlumpectomy and radiation
- Continue daily letrozole
DVT prophylaxis: SCDs
CODE STATUS: Full code
Total time spent on today's encounter was 40 minutes
Anticipated Discharge: 24 - 48 hours
Subjective/Interval History
-
Date of Service: December 21, 2024
Patient was seen and examined at bedside this morning. Feels a bit better but still has very little appetite, no nausea or vomiting. Renal function slightly improved.
Objective Data
-
Labs:
Laboratory Results
12/21/24
07:55
Sodium 134 L
Potassium 3.9 D
Chloride 91 L
Carbon Dioxide 35 H
BUN 43 H
Creatinine 3.3 H
Glucose 94
Calcium 10.7 H
Vital Signs:
Vital Signs
Temp Pulse Resp BP Pulse Ox
98 F 86 16 104/55 94
12/21/24 11:28 12/21/24 11:28 12/21/24 11:28 12/21/24 11:28 12/21/24 11:28
I&O
12/20/24 12/21/24 12/22/24
06:59 06:59 06:59
Intake Total 1080 / 1080 480 / 480
Balance 1080 / 1080 480 / 480
Review of Systems
-
History Source: Patient
All other systems: Reviewed and negative
Abdomen/GI: Reports Other (No appetite)
Physical Exam
-
General: No Apparent Distress
--- NOTE | 2024-12-21 13:50 | CM ---
Patient seen at bedside on . CM provided IMM and patient to review form. Patient states that she will be driving self home. CM will continue to follow for discharge planning needs.
Plan; home with no needs anticipated
[2024-12-21] MEDS: NSS 500 IV (13:56)
[2024-12-21 15:30] VITALS: BP 118/90
[2024-12-21] MEDS: PROTONIX 40 MG PO (17:09)
[2024-12-21 19:30] VITALS: BP 95/61
[2024-12-21] MEDS: NEURONTIN 300 MG PO (20:13)
[2024-12-21] MEDS: REQUIP 0.25 MG PO (20:13)
[2024-12-21] MEDS: LIDOCAINE 4% PATCH 1 PATCH TOPICAL (20:14)
[2024-12-21 23:45] VITALS: BP 122/62
[2024-12-22 03:37] VITALS: BP 111/92
[2024-12-22 04:23] LABS: Blood Urea Nitrogen 43 mg/dl (7-17); Calcium 10.6 mg/dl (8.4-10.2); Carbon Dioxide 32 mmol/L (22-30); Chloride 92 mmol/L (98-107); Estimated Creatinine Clearance 18 ml/min; Glucose 93 mg/dl (70-99); Phosphorus 3.5 mg/dl (2.5-4.5); Potassium 4.3 mmol/L (3.5-5.1); Sodium 133 mmol/L (135-145); eGFR 17.18
[2024-12-22 06:00] VITALS: BMI 39.4
[2024-12-22 07:00] VITALS: BP 106/64
[2024-12-22] MEDS: SYMBICORT 160/4.5 MCG INHALER 2 PUFF INH (07:36)
[2024-12-22] MEDS: ASPIR LOW (ENTERIC COATED) 81 MG PO (09:28)
[2024-12-22] MEDS: VITAMIN D3 (cholecalciferol) 25 MCG PO (09:28)
[2024-12-22] MEDS: RYTHMOL 150 MG PO (09:28)
[2024-12-22] MEDS: FEOSOL 325 MG PO (09:28)
[2024-12-22] MEDS: ZYLOPRIM 200 MG PO (09:28)
[2024-12-22] MEDS: FEMARA 2.5 MG PO (09:28)
[2024-12-22] MEDS: CRESTOR 10 MG PO (09:29)
--- NOTE | 2024-12-22 10:20 | W.DCSUMMARY ---
Discharge Summary
Discharge Data
Date of Admission: 12/19/24
Date of Discharge: 12/22/24
Total time spent discharging patient (in min): 45
-
Pending Results: No
Hospital Course
Ms. Hernandez is a 74-year-old female with a medical history of HFpEF, asthma/COPD, CKD stage IIIb/IV, breast cancer (stage 0, status post right lumpectomy and radiation 2019), acquired hypothyroidism (status post total thyroidectomy 2008), A-fib
(status post Watchman device 09/19/2023), obesity (Zepbound weekly injections), and sleep apnea (does not use NIPPV) who presented with nausea and vomiting with associated fatigue for the past few weeks. She was evaluated by her PCP due to her
symptoms and outpatient labs revealed worsening renal function with a creatinine of 4.2 which is why she was instructed to seek medical attention in the emergency department. Of note her Zepbound weekly injections were increased from 2.5 mg to 5 mg
prior to symptom onset. She has only been able to tolerate very little p.o. during that time. She reported intermittent diarrhea which has since resolved. She smokes marijuana in the evenings to help her sleep. Her spironolactone was recently
discontinued by her PCP. She denied abdominal pain, fevers, shortness of breath, or chest pain.
In the ED, she was normotensive and afebrile. Her labs were remarkable for creatinine of 3.9/BUN 63, sodium 132, potassium 3.3, chloride 85, bicarb 34. She was admitted for further evaluation and management of ANDREW on CKD in the setting of ongoing
GI symptoms. She appeared clinically hypovolemic and so was given some resuscitative IV fluids with subsequent improvement in her kidney function. Her home diuretic was held. Her potassium was repleted orally. She had no vomiting while in the
hospital and she was able to tolerate a p.o. diet. Her kidney function has significantly improved but is not yet back to baseline. She is medically stable for discharge to home. She will need close follow-up in the outpatient setting for ongoing
monitoring of her renal function and medication adjustments as needed. She should continue to hold her home torsemide until she is able to follow-up with her primary care physician and repeat labs to monitor her renal function. For now she should
use torsemide only as needed for rapid weight gain or significant edema. Her Zepbound injections should be held at least until her kidney function is back to her baseline. She should follow-up with her primary care physician about Zepbound dosage
adjustments or potentially discontinuing the medication if risks outweigh the benefits.
General: No Apparent Distress, Comfortable and Conversant
HEENT: NormoCephalic, Moist mucous membranes, Atraumatic
Respiratory: Clear and Non Labored Respirations
Cardiac: S1/S2 and Regular Rhythm; No Rub or Gallop
GI: Soft, Non Tender, Non Distended and Normal Bowel Sounds
Musculoskeletal: Trace bilateral lower extremity edema, no deformity
Skin: Warm and dry
: NO Tim
Neuro: Awake, Alert, Nonfocal/grossly intact
Psych: Calm and Intact Judgment/Insight
Discharge Plan
-
Patient Disposition: Home (Routine Discharge)
Discharge Diagnosis/Procedures: ANDREW on CKD
Diet: Restrict fluids to 64 oz
Activity: As tolerated
Blood Work: BMP in 3 days to monitor kidney function
Activity Restrictions/Additional Instructions:
Ms. Hernandez is a 74-year-old female with a medical history of HFpEF, asthma/COPD, CKD stage IIIb/IV, breast cancer (stage 0, status post right lumpectomy and radiation 2019), acquired hypothyroidism (status post total thyroidectomy 2008), A-fib
(status post Watchman device 09/19/2023), obesity (Zepbound weekly injections), and sleep apnea (does not use NIPPV) who presented with nausea and vomiting with associated fatigue for the past few weeks. She was evaluated by her PCP due to her
symptoms and outpatient labs revealed worsening renal function with a creatinine of 4.2 which is why she was instructed to seek medical attention in the emergency department. Of note her Zepbound weekly injections were increased from 2.5 mg to 5 mg
prior to symptom onset. She has only been able to tolerate very little p.o. during that time. She reported intermittent diarrhea which has since resolved. She smokes marijuana in the evenings to help her sleep. Her spironolactone was recently
discontinued by her PCP. She denied abdominal pain, fevers, shortness of breath, or chest pain.
In the ED, she was normotensive and afebrile. Her labs were remarkable for creatinine of 3.9/BUN 63, sodium 132, potassium 3.3, chloride 85, bicarb 34. She was admitted for further evaluation and management of ANDREW on CKD in the setting of ongoing
GI symptoms. She appeared clinically hypovolemic and so was given some resuscitative IV fluids with subsequent improvement in her kidney function. Her home diuretic was held. Her potassium was repleted orally. She had no vomiting while in the
hospital and she was able to tolerate a p.o. diet. Her kidney function has significantly improved but is not yet back to baseline. She is medically stable for discharge to home. She will need close follow-up in the outpatient setting for ongoing
monitoring of her renal function and medication adjustments as needed. She should continue to hold her home torsemide until she is able to follow-up with her primary care physician and repeat labs to monitor her renal function. For now she should
use torsemide only as needed for rapid weight gain or significant edema. Her Zepbound injections should be held at least until her kidney function is back to her baseline. She should follow-up with her primary care physician about Zepbound dosage
adjustments or potentially discontinuing the medication if risks outweigh the benefits.
Referrals:
Benjamín Mast Jr., [Family Provider, Internal Medicine]
Prescriptions:
Continued
levothyroxine 175 MCG tablet
175 mcg PO [id number]
omeprazole 20 MG capsule,delayed release(DR/EC)
20 mg PO QPM
cholecalciferol (vitamin D3) [Vitamin D3] 1,000 UNIT capsule
1,000 unit PO DAILY
albuterol sulfate 1 PUFF HFA aerosol inhaler
1 puff inhalation R Q4HPRN PRN (Reason: asthma)
loperamide 2 MG capsule
2 mg PO Q4HPRN PRN (Reason: diarrhea)
allopurinol 100 mg Tablet
200 mg PO DAILY
ropinirole 0.25 mg Tablet
0.25 mg PO HS
rosuvastatin [Crestor] 20 mg Tablet
20 mg PO DAILY
Prolia 60 mg/mL Syringe
60 mg SC [id number]
letrozole 2.5 mg Tablet
2.5 mg PO DAILY
propafenone 150 mg Tablet
150 mg PO TID
ferrous sulfate 325 mg (65 mg iron) Tablet
325 mg PO DAILY
biotin 1 mg Tablet
1 mg PO DAILY Qty: 0
aspirin 81 mg tablet,delayed release (DR/EC)
81 mg PO DAILY Qty: 1 0RF
gabapentin 300 mg Capsule
300 mg PO HS
fluticasone furoate-vilanterol [Breo Ellipta] 200-25 mcg/dose Blister With Device
1 inh INHALATION R DAILY
Held
torsemide 20 MG tablet
20 mg PO Q48H
Hold Instructions: Hold until follow-up with primary care physician to monitor renal function
torsemide 20 mg Tablet
40 mg PO Q48H
Hold Instructions: Hold until follow-up with primary care physician to monitor renal function
Zepbound 2.5 mg/0.5 mL Pen Injector
2.5 mg SC BEJARANO
Hold Instructions: Hold until follow-up with primary care physician
Rx Instructions:
for 4 weeks
Discharge Orders:
Discharge Patient (As Directed); Ordered 12/22/24
Ordered By: Gonzalez Plummer
Discharge Date and Time
Print Language: CHINESE
--- NOTE | 2024-12-22 10:36 | CM ---
Patient with Dx ANDREW.
Spoke with patient who was preparing for discharge.
The patient says she feels ready for discharge home today.
IMM completed yesterday per prior CM notes.
The patient plans on driving herself home.
No CM d/c needs identified.
Plan home today.
[2024-12-22 11:00] VITALS: BP 112/62
== END 2024-12-22 11:05 | disposition home or self-care (01) | DRG 683 ==
LOC: 3 WEST ACU 12:21
PROVIDERS: Specialist; ADMITTING PHYSICIAN Internal Medicine; EMERGENCY PHYSICIAN Emergency Medicine; FAMILY PHYSICIAN Family Medicine; OTHER PHYSICIAN Internal Medicine
DX: N17.9 Acute kidney failure, unspecified (principal); E87.1 Hypo-osmolality and hyponatremia; I50.32 Chronic diastolic (congestive) heart failure; I48.21 Permanent atrial fibrillation; I13.0 Hypertensive heart and chronic kidney disease with heart failure and stage 1 through stage 4 chronic kidney disease, or unspecified chronic kidney disease; Z68.41 Body mass index [BMI] 40.0-44.9, adult; E87.3 Alkalosis; N18.4 Chronic kidney disease, stage 4 (severe); J44.89 Other specified chronic obstructive pulmonary disease; E87.6 Hypokalemia; E89.0 Postprocedural hypothyroidism; F17.200 Nicotine dependence, unspecified, uncomplicated; I25.10 Atherosclerotic heart disease of native coronary artery without angina pectoris; E66.01 Morbid (severe) obesity due to excess calories; E86.1 Hypovolemia; Z85.3 Personal history of malignant neoplasm of breast; Z79.899 Other long term (current) drug therapy; Z92.3 Personal history of irradiation
CPT/HCPCS: 71046; 80048; 80053; 81003; 81015; 82570; 83735; 84100; 84300; 84443; 85025; 86803; 87086; 94640; 99284

== ENCOUNTER → 2025-03-08 09:56 | Outpatient (REF) | payer MEDICARE, SELFPAY | LOC: PAVMRI 09:56 | PROVIDERS: ATTENDING PHYSICIAN Orthopaedic Surgery; FAMILY PHYSICIAN Family Medicine | DX: M25.551 Pain in right hip (principal) | CPT/HCPCS: 73721 ==

== ENCOUNTER → 2025-04-07 14:43 | Outpatient (REF) | payer MEDICARE, SELFPAY | LOC: RAD 14:43 | PROVIDERS: ATTENDING PHYSICIAN Family Medicine | DX: R60.0 Localized edema (principal) | CPT/HCPCS: 93971 ==

== ENCOUNTER 2025-06-27 06:44 | Outpatient (RCR) | payer MEDICARE, SELFPAY | END 2025-06-27 23:59 | disposition home or self-care (01) | LOC: RPT 06:44 | PROVIDERS: ATTENDING PHYSICIAN Orthopaedic Surgery; FAMILY PHYSICIAN Family Medicine | DX: S72.492D Other fracture of lower end of left femur, subsequent encounter for closed fracture with routine healing (principal); Z73.6 Limitation of activities due to disability; R26.2 Difficulty in walking, not elsewhere classified; M62.81 Muscle weakness (generalized); V48.4XXD Person boarding or alighting a car injured in noncollision transport accident, subsequent encounter | CPT/HCPCS: 97162; 97530 ==

== ENCOUNTER 2025-07-01 13:45 | Emergency (ER) | payer MEDICARE, SELFPAY ==
[2025-07-01 13:56] VITALS: BP 103/65
[2025-07-01 15:12] VITALS: BMI 39.2
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
[2025-07-01 15:27] VITALS: BP 113/66
== END 2025-07-01 15:38 | disposition home or self-care (01) ==
LOC: EMR 13:45
PROVIDERS: EMERGENCY PHYSICIAN Emergency Medicine; FAMILY PHYSICIAN Family Medicine
DX: S00.03XA Contusion of scalp, initial encounter (principal); W22.09XA Striking against other stationary object, initial encounter; I48.91 Unspecified atrial fibrillation; I50.9 Heart failure, unspecified; N18.9 Chronic kidney disease, unspecified
CPT/HCPCS: 99284; 70450; 72125